=== PATIENT | male | born 1990 | race Caucasian/White ===

== ENCOUNTER 2019-08-21 08:05 | Inpatient (IN) | payer OTHER ==
[2019-08-21 08:50] VITALS: BMI 27.1
--- NOTE | 2019-08-21 09:23 | HP ---
CIWA Score - Admission Criteria OASAS Guidelines: Admission for Medically Managed Detox: Requires at least one of the followin. CIWA greater than 12 2. Seizures within the past 24 hours 3. Delirium tremens within the past 24 hours 4. Hallucinations within the past 24 hours 5. Acute intervention needed for co occurring medical disorder 6. Acute intervention needed for co occurring psychiatric disorder 7. Severe withdrawal that cannot be handled at a lower level of care (continued vomiting, continued diarrhea, abnormal vital signs) requiring intravenous medication and/or fluids 8. Admission ROS [facility] Allergies/Adverse Reactions: Allergies Allergy/AdvReac Type Severity Reaction Status Date / Time No Known Allergies Allergy Verified 08/21/19 08:41 History of Present Illness: pt here requesting rehab from cannabis , crystal metamphetamine use , reports binge-use 5-6 days in a row latest 2 days ago , started use 6 mo ago . MMTP since 3 mo ago , current dose 80 mg . cannabis - 1 gr 3-4 x/week pmhx hep C dx 2 yrs ago no tx pshx : denies psych : denies This report was requested by: Guerita Fuentes | Reference #: [id number] Others' Prescriptions Patient Name: Maurizio Daly Date: 1990 Address: [address] [place] [address] Sex: Male Rx Written Rx Dispensed Drug Quantity Days Supply Prescriber Name 02/17/2019 02/17/2019 suboxone 2 mg-0.5 mg sl film 60 30 Rossi Malik Patient Name: Maurizio Daly Date: 1990 Address: [address] [place] [address] Sex: Male Rx Written Rx Dispensed Drug Quantity Days Supply Prescriber Name 12/30/2018 12/30/2018 buprenorphine-naloxone 8-2 mg sl film 6 2 Cal Sloan MD 12/30/2018 12/30/2018 chlordiazepoxide 10 mg capsule 18 2 Cal Sloan MD 08/25/2018 08/25/2018 suboxone 8 mg-2 mg sl film 9 3 Cal Sloan MD Patient Name: Maurizio Daly Date: 1990 Address: [address] [place] [id number] Sex: Male Rx Written Rx Dispensed Drug Quantity Days Supply Prescriber Name 09/05/2018 09/09/2018 suboxone 8 mg-2 mg sl film 12 8 Elliot Ricketts () Exam Limitations: No Limitations - Ebola screening Have you traveled outside of the country in the last 21 days: No Have you had contact with anyone from an Ebola affected area: No Do you have a fever: No - Review of Systems Constitutional: No Symptoms Reported EENT: reports: No Symptoms Reported, Dental Problems Respiratory: reports: No Symptoms reported Cardiac: reports: No Symptoms Reported GI: reports: No Symptoms Reported : reports: No Symptoms Reported Musculoskeletal: reports: No Symptoms Reported Integumentary: reports: Erythema (jaylan hands), Rash Neuro: reports: No Symptoms reported Endocrine: reports: No Symptoms Reported Hematology: reports: No Symptoms Reported Psychiatric: reports: Orientated x3, Agitated Patient History - Smoking Cessation Smoking history: Smoker current status UNK - Substances abused Heroin Substance route: Injection Frequency: Daily Amount used: 5 bags Age of first use: 18 Date of last use: 08/19/19 Alprazolam (Xanax) Substance route: Oral Frequency: 3-6 times per week Amount used: 2mg Age of first use: 16 Date of last use: 08/16/19 Crack Substance route: Smoking Frequency: 3-6 times per week Amount used: $20 worth Age of first use: 21 Date of last use: 08/19/19 Crystal meth Substance route: Injection Frequency: Daily Amount used: 1gm Age of first use: 28 Date of last use: 08/20/19 Admission Physical Exam [facility] - Vital Signs Vital Signs: Vital Signs - 24 hr 08/21/19 08/21/19 08:38 09:12 Temperature 97.8 F 97.8 F Pulse Rate 74 74 Respiratory 20 20 Rate Blood Pressure 131/88 131/88 - Physical General Appearance: Yes: Disheveled, Mild Distress, Anxious HEENTM: Yes: EOMI, Hearing grossly Normal, Normocephalic, Normal Voice Respiratory: Yes: Chest Non-Tender, Lungs Clear, Normal Breath Sounds, No Respiratory Distress, No Accessory Muscle Use Neck: Yes: No masses,lesions,Nodules, Trachea in good position Cardiology: Yes: Regular Rhythm, Regular Rate, S1, S2 Abdominal: Yes: Non Tender, Flat, Soft Back: Yes: Normal Inspection Musculoskeletal: Yes: Gait Steady Extremities: Yes: Non-Tender, Erythema (jaylan hands) Neurological: Yes: Alert, Motor Strength 5/5 Integumentary: Yes: Warm, Track Erazo, Other (superficial excoriations generalized jaylan UE / hands / face, area of alopecia on parietal states had excoriation and he kept " picking at it " no hair growth since .) - Diagnostic (1) Methamphetamine use disorder, severe Current Visit: Yes Status: Chronic (2) Opioid dependence on agonist therapy Current Visit: Yes Status: Chronic (3) Cannabis abuse, episodic use Current Visit: Yes Status: Chronic (4) Nicotine dependence Current Visit: Yes Status: Chronic Qualifiers: Nicotine product type: cigarettes (5) Cocaine use disorder, moderate, dependence Current Visit: Yes Status: Chronic Breathalyzer - Breathalyzer Breathalyzer: 0 Urine Drug Screen - Test Device Lot number: [id number] Expiration date: 04/08/21 - Control Is test valid?: Yes - Results Drug screen NEGATIVE: No Urine drug screen results: THC-Marijuana, MET-Methamphetamine, AMP-Amphetamines , MTD-Methadone Inpatient Rehab Admission - Rehab Decision to Admit Inpatient rehab admission?: Yes - Initial Determination Are CD services needed?: Yes Free of communicable disease: Yes Not in need of hospitalization: Yes - Rehab Admission Criteria Previous failed treatment: Yes Poor recovery environment: Yes Comorbidities: No Lacks judgement: Yes Patient is meeting Inpatient Rehab admission criteria:: Yes
[2019-08-21] MEDS ORDERED: LOPERAMIDE HCL 2 MG CAPSULE PO PRN (09:45)
[2019-08-21] MEDS ORDERED: guaiFENesin 200 MG/10 ML 10 ML UNIT-DOSE CUPS PO PRN (09:45)
[2019-08-21] MEDS ORDERED: P-EPHED 60MG/TRIPROLIDI 2.5MG TABLET PO PRN (09:45)
[2019-08-21] MEDS ORDERED: MAG HYDROX/AL HYDROX/SIMETH 30 ML UNIT-DOSE CUP PO PRN (09:45)
[2019-08-21] MEDS ORDERED: MAGNESIUM HYDROX 2400MG/30ML ORAL SUSPENSION 30 ML CUP PO PRN (09:45)
[2019-08-21] MEDS ORDERED: MAGNESIUM CITRATE 300 ML BOTTLE PO PRN (09:45)
[2019-08-21] MEDS ORDERED: MENTHOL/PHENOL 1 EACH UD MM PRN (09:45)
[2019-08-21] MEDS: PRENATAL VITAMINS W/ FOLIC ACID TABLET (FP) PO SCH (11:26)
[2019-08-21] MEDS: IBUPROFEN 400 MG TABLET (FP) PO PRN ×2 (11:44→16:57)
--- NOTE | 2019-08-21 11:44 | PN ---
S Progress Note Note: Patient arrived to unit from [facility] for rehab services for dependence on Crystal Meth. He is currently on MTD 80mg daily at [facility] with Last dose 08/20/19. Verified at [facility] by JASON Duran. Patient noted falling asleep in chair, alert and oriented x 3, in NAD. States he has been up for 5 days. Will hold administering MTD at this time until he is more awake. Vital Signs Temperature 97.8 F 08/21/19 09:12 Pulse Rate 74 08/21/19 09:12 Respiratory Rate 20 08/21/19 09:12 Blood Pressure 131/88 08/21/19 09:12 O2 Sat by Pulse Oximetry (%)
[2019-08-21 12:36] LABS: HEMATOCRIT 36.5 % (35.4-49); HEMOGLOBIN 12.8 GM/dL (11.7-16.9); MCH 30.7 pg (25.7-33.7); MCHC 35.1 g/dl (32.0-35.9); MEAN CELL VOLUME 87.3 fl (80-96); PLATELET COUNT 317 K/MM3 (134-434); RBC 4.18 M/mm3 (4.00-5.60); RDW 12.3 % (11.9-15.9); WHITE BLOOD COUNT 9.5 K/mm3 (4.0-10.0)
[2019-08-21 12:44] LABS: ALBUMIN 3.7 g/dl (3.4-5.0); BILIRUBIN,TOTAL 0.4 mg/dL (0.2-1); BLOOD UREA NITROGEN 14.6 mg/dL (7-18); CALCIUM 9.6 mg/dL (8.5-10.1); CREATININE 0.8 mg/dL (0.55-1.3); POTASSIUM 4.3 mmol/L (3.5-5.1); TOT PROT 7.8 g/dl (6.4-8.2)
[2019-08-21] MEDS: METHADONE HCL 40 MG DISPERSABLE TABLET PO SCH (15:04)
[2019-08-21] MEDS: BACITRACIN/POLYMYXIN B SULFATE 15 GM TUBE TP SCH ×2 (15:05→21:21)
[2019-08-21] MEDS: MELATONIN 5 MG TABLETS PO PRN (21:20)
[2019-08-21] MEDS: THIAMINE HCL 100 MG TABLET (FP) PO SCH (21:20)
[2019-08-21] MEDS ORDERED: BACITRACIN 15 GM TUBE TOPICAL OINTMENT TP SCH (22:00)
[2019-08-22] MEDS: METHADONE HCL 40 MG DISPERSABLE TABLET PO SCH (09:42)
[2019-08-22] MEDS: PRENATAL VITAMINS W/ FOLIC ACID TABLET (FP) PO SCH (09:43)
[2019-08-22] MEDS: BACITRACIN/POLYMYXIN B SULFATE 15 GM TUBE TP SCH ×2 (09:43→23:20)
[2019-08-22] MEDS: THIAMINE HCL 100 MG TABLET (FP) PO SCH (23:20)
[2019-08-23] MEDS: METHADONE HCL 40 MG DISPERSABLE TABLET PO SCH (09:57)
[2019-08-23] MEDS: PRENATAL VITAMINS W/ FOLIC ACID TABLET (FP) PO SCH (09:58)
[2019-08-23] MEDS: BACITRACIN/POLYMYXIN B SULFATE 15 GM TUBE TP SCH ×2 (09:59→22:42)
[2019-08-23 11:05] LABS: PH,URINE 5.5 (5.0-8.0); URINE APPEARANCE CLEAR; URINE BILIRUBIN NEGATIVE (NEGATIVE); URINE COLOR YELLOW; URINE GLUCOSE (UA) NEGATIVE (NEGATIVE); URINE KETONE NEGATIVE (NEGATIVE); URINE LEUK ESTERASE NEGATIVE (NEGATIVE); URINE NITRITE NEGATIVE (NEGATIVE); URINE PROTEIN NEGATIVE (NEGATIVE); URINE UROBILINOGEN 0.2 mg/dL (0.2-1.0)
[2019-08-23] MEDS: THIAMINE HCL 100 MG TABLET (FP) PO SCH (22:42)
[2019-08-23] MEDS: IBUPROFEN 400 MG TABLET (FP) PO PRN (22:43)
[2019-08-23] MEDS: MELATONIN 5 MG TABLETS PO PRN (22:44)
[2019-08-24] MEDS: BACITRACIN/POLYMYXIN B SULFATE 15 GM TUBE TP SCH ×2 (10:18→21:13)
[2019-08-24] MEDS: PRENATAL VITAMINS W/ FOLIC ACID TABLET (FP) PO SCH (10:18)
[2019-08-24] MEDS: METHADONE HCL 40 MG DISPERSABLE TABLET PO SCH (10:18)
[2019-08-24] MEDS: IBUPROFEN 400 MG TABLET (FP) PO PRN (17:52)
[2019-08-24] MEDS: THIAMINE HCL 100 MG TABLET (FP) PO SCH (21:12)
[2019-08-24] MEDS: MELATONIN 5 MG TABLETS PO PRN (21:12)
[2019-08-25] MEDS: METHADONE HCL 40 MG DISPERSABLE TABLET PO SCH (10:04)
[2019-08-25] MEDS: PRENATAL VITAMINS W/ FOLIC ACID TABLET (FP) PO SCH (10:04)
[2019-08-25] MEDS: BACITRACIN/POLYMYXIN B SULFATE 15 GM TUBE TP SCH ×2 (10:06→21:22)
[2019-08-25] MEDS: THIAMINE HCL 100 MG TABLET (FP) PO SCH (21:21)
[2019-08-25] MEDS: MELATONIN 5 MG TABLETS PO PRN (21:21)
[2019-08-26] MEDS: PRENATAL VITAMINS W/ FOLIC ACID TABLET (FP) PO SCH (10:18)
[2019-08-26] MEDS: METHADONE HCL 40 MG DISPERSABLE TABLET PO SCH (10:19)
[2019-08-26] MEDS: BACITRACIN/POLYMYXIN B SULFATE 15 GM TUBE TP SCH ×2 (10:20→21:23)
[2019-08-26] MEDS: THIAMINE HCL 100 MG TABLET (FP) PO SCH (21:24)
[2019-08-26] MEDS: MELATONIN 5 MG TABLETS PO PRN (21:24)
[2019-08-27] MEDS: PRENATAL VITAMINS W/ FOLIC ACID TABLET (FP) PO SCH (10:28)
[2019-08-27] MEDS: METHADONE HCL 40 MG DISPERSABLE TABLET PO SCH (10:28)
[2019-08-27] MEDS: BACITRACIN/POLYMYXIN B SULFATE 15 GM TUBE TP SCH ×2 (10:30→22:02)
[2019-08-27] MEDS: IBUPROFEN 400 MG TABLET (FP) PO PRN (11:50)
[2019-08-27] MEDS: THIAMINE HCL 100 MG TABLET (FP) PO SCH (22:02)
[2019-08-28] MEDS: METHADONE HCL 40 MG DISPERSABLE TABLET PO SCH (06:48)
[2019-08-28] MEDS: PRENATAL VITAMINS W/ FOLIC ACID TABLET (FP) PO SCH (09:59)
[2019-08-28] MEDS: IBUPROFEN 400 MG TABLET (FP) PO PRN ×2 (09:59→18:01)
[2019-08-28] MEDS: BACITRACIN/POLYMYXIN B SULFATE 15 GM TUBE TP SCH ×2 (11:38→22:04)
[2019-08-28] MEDS: NICOTINE POLACRILEX 2 MG GUM BUC PRN ×2 (14:21→18:03)
[2019-08-28] MEDS: ACETAMINOPHEN 325 MG TABLET (FP) PO PRN (20:53)
[2019-08-28] MEDS: THIAMINE HCL 100 MG TABLET (FP) PO SCH (22:04)
[2019-08-29] MEDS: IBUPROFEN 400 MG TABLET (FP) PO PRN ×3 (06:42→22:04)
[2019-08-29] MEDS: METHADONE HCL 40 MG DISPERSABLE TABLET PO SCH (06:43)
[2019-08-29] MEDS: PRENATAL VITAMINS W/ FOLIC ACID TABLET (FP) PO SCH (11:07)
[2019-08-29] MEDS: BACITRACIN/POLYMYXIN B SULFATE 15 GM TUBE TP SCH ×2 (11:07→21:19)
[2019-08-29] MEDS: NICOTINE POLACRILEX 2 MG GUM BUC PRN (19:51)
[2019-08-29] MEDS: THIAMINE HCL 100 MG TABLET (FP) PO SCH (21:16)
[2019-08-29] MEDS: ACETAMINOPHEN 325 MG TABLET (FP) PO PRN (21:17)
[2019-08-30] MEDS: METHADONE HCL 40 MG DISPERSABLE TABLET PO SCH (07:06)
[2019-08-30] MEDS: BACITRACIN/POLYMYXIN B SULFATE 15 GM TUBE TP SCH ×2 (09:45→21:20)
[2019-08-30] MEDS: NICOTINE POLACRILEX 2 MG GUM BUC PRN ×2 (09:45→21:20)
[2019-08-30] MEDS: IBUPROFEN 400 MG TABLET (FP) PO PRN ×2 (09:45→22:17)
[2019-08-30] MEDS: PRENATAL VITAMINS W/ FOLIC ACID TABLET (FP) PO SCH (09:45)
[2019-08-30] MEDS: THIAMINE HCL 100 MG TABLET (FP) PO SCH (21:20)
[2019-08-31] MEDS: METHADONE HCL 40 MG DISPERSABLE TABLET PO SCH (06:28)
[2019-08-31] MEDS ORDERED: BENZOCAINE 20 % GEL TUBE MM PRN (09:42)
--- NOTE | 2019-08-31 09:52 | PN ---
[facility] Progress Note Note: Patient presents with c/o toothache and constipation. State his last BM was 2 days ago and MOM is ineffective to provide relief. Patient denies fever, earache , abdominal pain and nausea. On MMTP. Vital Signs Temperature 97.8 F 08/31/19 07:08 Pulse Rate 81 08/31/19 07:08 Respiratory Rate 18 08/31/19 07:08 Blood Pressure 105/58 L 08/31/19 07:08 O2 Sat by Pulse Oximetry (%) Laboratory Tests 08/21/19 08/21/19 08/21/19 09:30 09:30 09:30 WBC 9.5 RBC 4.18 Hgb 12.8 Hct 36.5 MCV 87.3 MCH 30.7 MCHC 35.1 RDW 12.3 Plt Count 317 MPV 8.0 Sodium 137 Potassium 4.3 Chloride 102 Carbon Dioxide 30 Anion Gap 5 L BUN 14.6 Creatinine 0.8 Est GFR (CKD-EPI)AfAm 140.90 Est GFR (CKD-EPI)NonAf 121.57 Random Glucose 94 Calcium 9.6 Total Bilirubin 0.4 AST 49 H ALT 85 H Alkaline Phosphatase 103 Total Protein 7.8 Albumin 3.7 Urine Color Urine Appearance Urine pH Ur Specific [place] Urine Protein Urine Glucose (UA) Urine Ketones Urine Blood Urine Nitrite Urine Bilirubin Urine Urobilinogen Ur Leukocyte Esterase RPR Titer Nonreactive 08/23/19 08:20 WBC RBC Hgb Hct MCV MCH MCHC RDW Plt Count MPV Sodium Potassium Chloride Carbon Dioxide Anion Gap BUN Creatinine Est GFR (CKD-EPI)AfAm Est GFR (CKD-EPI)NonAf Random Glucose Calcium Total Bilirubin AST ALT Alkaline Phosphatase Total Protein Albumin Urine Color Yellow Urine Appearance Clear Urine pH 5.5 Ur Specific [place] 1.018 Urine Protein Negative Urine Glucose (UA) Negative Urine Ketones Negative Urine Blood Negative Urine Nitrite Negative Urine Bilirubin Negative Urine Urobilinogen 0.2 Ur Leukocyte Esterase Negative RPR Titer PE: alert and oriented x 3 skin warm and dry oral mucosa pink, +tooth decay, no exudate or redness of gums noted gi nt, nd ext full rom, amb ad tiffani no tremors A/P; constipation likely due to MTD toothache continue prn with citroma, to receive dose now encourage ambulation and oral fluids add oragel prn increase motrin to 600mg every 6 hr prn for pain monitor clinically
[2019-08-31] MEDS: BACITRACIN/POLYMYXIN B SULFATE 15 GM TUBE TP SCH ×2 (10:18→21:30)
[2019-08-31] MEDS: PRENATAL VITAMINS W/ FOLIC ACID TABLET (FP) PO SCH (10:19)
[2019-08-31] MEDS: DOCUSATE SODIUM 100 MG CAPSULE (FP) PO SCH ×2 (13:41→21:30)
[2019-08-31] MEDS: IBUPROFEN 600 MG TABLET (FP) PO PRN (19:34)
[2019-08-31] MEDS: THIAMINE HCL 100 MG TABLET (FP) PO SCH (21:30)
[2019-09-01] MEDS: DOCUSATE SODIUM 100 MG CAPSULE (FP) PO SCH ×3 (06:44→21:13)
[2019-09-01] MEDS: IBUPROFEN 600 MG TABLET (FP) PO PRN ×2 (07:14→18:44)
[2019-09-01] MEDS: PRENATAL VITAMINS W/ FOLIC ACID TABLET (FP) PO SCH (10:06)
[2019-09-01] MEDS: METHADONE HCL 40 MG DISPERSABLE TABLET PO SCH (10:06)
[2019-09-01] MEDS: BACITRACIN/POLYMYXIN B SULFATE 15 GM TUBE TP SCH ×2 (10:07→21:13)
[2019-09-01] MEDS: THIAMINE HCL 100 MG TABLET (FP) PO SCH (21:13)
[2019-09-01] MEDS: ACETAMINOPHEN 325 MG TABLET (FP) PO PRN (23:39)
[2019-09-02] MEDS: IBUPROFEN 600 MG TABLET (FP) PO PRN ×2 (06:11→16:20)
[2019-09-02] MEDS: DOCUSATE SODIUM 100 MG CAPSULE (FP) PO SCH ×3 (06:11→21:10)
[2019-09-02] MEDS: METHADONE HCL 40 MG DISPERSABLE TABLET PO SCH (09:51)
[2019-09-02] MEDS: PRENATAL VITAMINS W/ FOLIC ACID TABLET (FP) PO SCH (09:52)
[2019-09-02] MEDS: BACITRACIN/POLYMYXIN B SULFATE 15 GM TUBE TP SCH ×2 (09:52→21:11)
[2019-09-02] MEDS: NICOTINE POLACRILEX 2 MG GUM BUC PRN (19:23)
[2019-09-02] MEDS: THIAMINE HCL 100 MG TABLET (FP) PO SCH (21:10)
[2019-09-03] MEDS: DOCUSATE SODIUM 100 MG CAPSULE (FP) PO SCH ×3 (07:17→21:08)
[2019-09-03] MEDS: IBUPROFEN 600 MG TABLET (FP) PO PRN ×2 (08:48→21:09)
[2019-09-03] MEDS: PRENATAL VITAMINS W/ FOLIC ACID TABLET (FP) PO SCH (10:05)
[2019-09-03] MEDS: BACITRACIN/POLYMYXIN B SULFATE 15 GM TUBE TP SCH ×2 (10:06→21:10)
[2019-09-03] MEDS ORDERED: METHADONE HCL 40 MG DISPERSABLE TABLET PO ONE (10:45)
[2019-09-03] MEDS: THIAMINE HCL 100 MG TABLET (FP) PO SCH (21:08)
[2019-09-04] MEDS: DOCUSATE SODIUM 100 MG CAPSULE (FP) PO SCH ×3 (07:27→21:23)
[2019-09-04] MEDS: IBUPROFEN 600 MG TABLET (FP) PO PRN ×2 (07:27→21:21)
[2019-09-04] MEDS: METHADONE HCL 40 MG DISPERSABLE TABLET PO SCH (10:11)
[2019-09-04] MEDS: PRENATAL VITAMINS W/ FOLIC ACID TABLET (FP) PO SCH (10:11)
[2019-09-04] MEDS: BACITRACIN/POLYMYXIN B SULFATE 15 GM TUBE TP SCH ×2 (10:12→21:23)
[2019-09-04] MEDS: NICOTINE POLACRILEX 2 MG GUM BUC PRN (21:22)
[2019-09-04] MEDS: THIAMINE HCL 100 MG TABLET (FP) PO SCH (21:23)
[2019-09-05] MEDS: DOCUSATE SODIUM 100 MG CAPSULE (FP) PO SCH ×3 (07:20→21:37)
[2019-09-05] MEDS: PRENATAL VITAMINS W/ FOLIC ACID TABLET (FP) PO SCH (10:14)
[2019-09-05] MEDS: BACITRACIN/POLYMYXIN B SULFATE 15 GM TUBE TP SCH ×2 (10:15→21:37)
[2019-09-05] MEDS: METHADONE HCL 40 MG DISPERSABLE TABLET PO SCH (10:15)
[2019-09-05] MEDS: NICOTINE POLACRILEX 2 MG GUM BUC PRN (14:05)
[2019-09-05] MEDS: THIAMINE HCL 100 MG TABLET (FP) PO SCH (21:37)
[2019-09-06] MEDS: DOCUSATE SODIUM 100 MG CAPSULE (FP) PO SCH ×3 (07:13→21:59)
[2019-09-06] MEDS: PRENATAL VITAMINS W/ FOLIC ACID TABLET (FP) PO SCH (09:50)
[2019-09-06] MEDS: METHADONE HCL 40 MG DISPERSABLE TABLET PO SCH (09:51)
[2019-09-06] MEDS: BACITRACIN/POLYMYXIN B SULFATE 15 GM TUBE TP SCH ×2 (09:52→21:59)
[2019-09-06] MEDS: THIAMINE HCL 100 MG TABLET (FP) PO SCH (21:59)
[2019-09-07] MEDS: DOCUSATE SODIUM 100 MG CAPSULE (FP) PO SCH ×2 (07:18→14:14)
[2019-09-07] MEDS: METHADONE HCL 40 MG DISPERSABLE TABLET PO SCH (10:04)
[2019-09-07] MEDS: PRENATAL VITAMINS W/ FOLIC ACID TABLET (FP) PO SCH (10:04)
[2019-09-07] MEDS: BACITRACIN/POLYMYXIN B SULFATE 15 GM TUBE TP SCH ×2 (10:05→21:55)
[2019-09-07] MEDS: THIAMINE HCL 100 MG TABLET (FP) PO SCH (21:55)
[2019-09-07] MEDS ORDERED: DOCUSATE SODIUM 100 MG CAPSULE (FP) PO ONE (22:00)
[2019-09-07] MEDS: hydrOXYzine PAMOATE 25 MG CAPSULE (FP) PO PRN (22:47)
[2019-09-08] MEDS: BACITRACIN/POLYMYXIN B SULFATE 15 GM TUBE TP SCH ×2 (10:15→22:34)
[2019-09-08] MEDS: PRENATAL VITAMINS W/ FOLIC ACID TABLET (FP) PO SCH (10:15)
[2019-09-08] MEDS: DOCUSATE SODIUM 100 MG CAPSULE (FP) PO SCH (10:15)
[2019-09-08] MEDS: METHADONE HCL 40 MG DISPERSABLE TABLET PO SCH (10:15)
[2019-09-08] MEDS: hydrOXYzine PAMOATE 25 MG CAPSULE (FP) PO PRN (11:56)
[2019-09-08] MEDS: NICOTINE POLACRILEX 2 MG GUM BUC PRN (14:10)
[2019-09-08] MEDS ORDERED: COLLOIDAL OATMEAL 1 BAR EACH TP PRN (15:17)
--- NOTE | 2019-09-08 15:25 | PN ---
[facility] Progress Note Note: Pt c/o itchy red rash on legs and abdomen. Pt also c/o dry scaly scalp and hx dandruff. Vital Signs - 24 hr 09/08/19 09/08/19 09/08/19 00:30 03:30 06:53 Temperature 97.7 F Pulse Rate 78 Respiratory 18 18 18 Rate Blood Pressure 117/69 Alert o x 3 nad oob ambulates with steady gait head:dry scalp skin:red maculopapular rash mixed with areas of red blotches;Dorsal hands with old healing IVD inj lesions. A/P r/o allergic rxn nonspecific skin eruptions dandruff Benadryl 25 mg po tid prn for itch/rash Aveeno soap daily shower eucerin cream daily after shower selsun shampoo as directed
[2019-09-08] MEDS: SELENIUM SULFIDE 2.5% LOTION 4 OZ. TP SCH (16:29)
[2019-09-08] MEDS: MINERAL OIL/PETROLAT/WATER TOPICAL CREAM 113 GM JAR TP SCH (16:32)
[2019-09-08] MEDS: THIAMINE HCL 100 MG TABLET (FP) PO SCH (22:34)
[2019-09-09] MEDS: METHADONE HCL 40 MG DISPERSABLE TABLET PO SCH (09:53)
[2019-09-09] MEDS: PRENATAL VITAMINS W/ FOLIC ACID TABLET (FP) PO SCH (09:53)
[2019-09-09] MEDS: DOCUSATE SODIUM 100 MG CAPSULE (FP) PO SCH (09:53)
[2019-09-09] MEDS: MINERAL OIL/PETROLAT/WATER TOPICAL CREAM 113 GM JAR TP SCH (09:55)
[2019-09-09] MEDS: hydrOXYzine PAMOATE 25 MG CAPSULE (FP) PO PRN (09:55)
[2019-09-09] MEDS: BACITRACIN/POLYMYXIN B SULFATE 15 GM TUBE TP SCH ×2 (10:34→22:01)
[2019-09-09] MEDS: SELENIUM SULFIDE 2.5% LOTION 4 OZ. TP SCH (10:35)
[2019-09-09] MEDS: THIAMINE HCL 100 MG TABLET (FP) PO SCH (22:01)
[2019-09-10] MEDS ORDERED: METHADONE HCL 40 MG DISPERSABLE TABLET PO ONE (10:38)
[2019-09-10] MEDS: diphenhydrAMINE HCL 25 MG CAPSULE (FP) PO PRN (10:59)
[2019-09-10] MEDS: PRENATAL VITAMINS W/ FOLIC ACID TABLET (FP) PO SCH (10:59)
[2019-09-10] MEDS: DOCUSATE SODIUM 100 MG CAPSULE (FP) PO SCH (10:59)
[2019-09-10] MEDS: BACITRACIN/POLYMYXIN B SULFATE 15 GM TUBE TP SCH ×2 (11:01→21:46)
[2019-09-10] MEDS: SELENIUM SULFIDE 2.5% LOTION 4 OZ. TP SCH (11:01)
[2019-09-10] MEDS: MINERAL OIL/PETROLAT/WATER TOPICAL CREAM 113 GM JAR TP SCH (11:01)
[2019-09-10] MEDS: THIAMINE HCL 100 MG TABLET (FP) PO SCH (21:46)
[2019-09-11] MEDS: DOCUSATE SODIUM 100 MG CAPSULE (FP) PO SCH (09:41)
[2019-09-11] MEDS: diphenhydrAMINE HCL 25 MG CAPSULE (FP) PO PRN ×2 (09:41→16:17)
[2019-09-11] MEDS: METHADONE HCL 40 MG DISPERSABLE TABLET PO SCH (09:41)
[2019-09-11] MEDS: PRENATAL VITAMINS W/ FOLIC ACID TABLET (FP) PO SCH (09:41)
[2019-09-11] MEDS: BACITRACIN/POLYMYXIN B SULFATE 15 GM TUBE TP SCH ×2 (09:42→21:53)
[2019-09-11] MEDS: SELENIUM SULFIDE 2.5% LOTION 4 OZ. TP SCH (09:42)
[2019-09-11] MEDS: MINERAL OIL/PETROLAT/WATER TOPICAL CREAM 113 GM JAR TP SCH (09:42)
[2019-09-11] MEDS: NICOTINE POLACRILEX 2 MG GUM BUC PRN (16:18)
[2019-09-11] MEDS: HYDROCORTISONE 1% TOPICAL CREAM 30 GM TUBE TP SCH (21:53)
[2019-09-11] MEDS: THIAMINE HCL 100 MG TABLET (FP) PO SCH (21:54)
[2019-09-12] MEDS: HYDROCORTISONE 1% TOPICAL CREAM 30 GM TUBE TP SCH ×3 (06:50→22:01)
[2019-09-12] MEDS: DOCUSATE SODIUM 100 MG CAPSULE (FP) PO SCH (10:30)
[2019-09-12] MEDS: PRENATAL VITAMINS W/ FOLIC ACID TABLET (FP) PO SCH (10:30)
[2019-09-12] MEDS: METHADONE HCL 40 MG DISPERSABLE TABLET PO SCH (10:30)
[2019-09-12] MEDS: MINERAL OIL/PETROLAT/WATER TOPICAL CREAM 113 GM JAR TP SCH (10:32)
[2019-09-12] MEDS: BACITRACIN/POLYMYXIN B SULFATE 15 GM TUBE TP SCH ×2 (10:32→22:01)
[2019-09-12] MEDS: SELENIUM SULFIDE 2.5% LOTION 4 OZ. TP SCH (11:23)
[2019-09-12] MEDS: NICOTINE POLACRILEX 2 MG GUM BUC PRN (15:23)
[2019-09-12] MEDS: THIAMINE HCL 100 MG TABLET (FP) PO SCH (22:01)
[2019-09-13] MEDS: HYDROCORTISONE 1% TOPICAL CREAM 30 GM TUBE TP SCH ×3 (07:00→22:07)
[2019-09-13] MEDS: PRENATAL VITAMINS W/ FOLIC ACID TABLET (FP) PO SCH (09:57)
[2019-09-13] MEDS: SELENIUM SULFIDE 2.5% LOTION 4 OZ. TP SCH (09:59)
[2019-09-13] MEDS: BACITRACIN/POLYMYXIN B SULFATE 15 GM TUBE TP SCH ×2 (09:59→22:07)
[2019-09-13] MEDS: METHADONE HCL 40 MG DISPERSABLE TABLET PO SCH (09:59)
[2019-09-13] MEDS: MINERAL OIL/PETROLAT/WATER TOPICAL CREAM 113 GM JAR TP SCH (09:59)
[2019-09-13] MEDS: DOCUSATE SODIUM 100 MG CAPSULE (FP) PO SCH (09:59)
[2019-09-13] MEDS: NICOTINE POLACRILEX 2 MG GUM BUC PRN (16:48)
[2019-09-13] MEDS: THIAMINE HCL 100 MG TABLET (FP) PO SCH (22:07)
[2019-09-14] MEDS: HYDROCORTISONE 1% TOPICAL CREAM 30 GM TUBE TP SCH ×3 (07:47→22:42)
[2019-09-14] MEDS: DOCUSATE SODIUM 100 MG CAPSULE (FP) PO SCH (10:12)
[2019-09-14] MEDS: METHADONE HCL 40 MG DISPERSABLE TABLET PO SCH (10:12)
[2019-09-14] MEDS: PRENATAL VITAMINS W/ FOLIC ACID TABLET (FP) PO SCH (10:12)
[2019-09-14] MEDS: MINERAL OIL/PETROLAT/WATER TOPICAL CREAM 113 GM JAR TP SCH (10:13)
[2019-09-14] MEDS: BACITRACIN/POLYMYXIN B SULFATE 15 GM TUBE TP SCH ×2 (10:13→22:42)
[2019-09-14] MEDS: SELENIUM SULFIDE 2.5% LOTION 4 OZ. TP SCH (10:13)
[2019-09-14] MEDS: THIAMINE HCL 100 MG TABLET (FP) PO SCH (22:42)
[2019-09-15] MEDS: HYDROCORTISONE 1% TOPICAL CREAM 30 GM TUBE TP SCH ×3 (06:55→22:18)
[2019-09-15] MEDS: DOCUSATE SODIUM 100 MG CAPSULE (FP) PO SCH (10:23)
[2019-09-15] MEDS: METHADONE HCL 40 MG DISPERSABLE TABLET PO SCH (10:23)
[2019-09-15] MEDS: PRENATAL VITAMINS W/ FOLIC ACID TABLET (FP) PO SCH (10:23)
[2019-09-15] MEDS: MINERAL OIL/PETROLAT/WATER TOPICAL CREAM 113 GM JAR TP SCH (10:24)
[2019-09-15] MEDS: SELENIUM SULFIDE 2.5% LOTION 4 OZ. TP SCH (10:24)
[2019-09-15] MEDS: BACITRACIN/POLYMYXIN B SULFATE 15 GM TUBE TP SCH ×2 (10:24→22:18)
[2019-09-15] MEDS: NICOTINE POLACRILEX 2 MG GUM BUC PRN ×2 (13:24→19:35)
[2019-09-15] MEDS: THIAMINE HCL 100 MG TABLET (FP) PO SCH (22:18)
[2019-09-16] MEDS: HYDROCORTISONE 1% TOPICAL CREAM 30 GM TUBE TP SCH ×3 (06:28→21:20)
[2019-09-16] MEDS: DOCUSATE SODIUM 100 MG CAPSULE (FP) PO SCH (10:24)
[2019-09-16] MEDS: PRENATAL VITAMINS W/ FOLIC ACID TABLET (FP) PO SCH (10:25)
[2019-09-16] MEDS: METHADONE HCL 40 MG DISPERSABLE TABLET PO SCH (10:25)
[2019-09-16] MEDS: BACITRACIN/POLYMYXIN B SULFATE 15 GM TUBE TP SCH ×2 (10:26→21:20)
[2019-09-16] MEDS: MINERAL OIL/PETROLAT/WATER TOPICAL CREAM 113 GM JAR TP SCH (10:26)
[2019-09-16] MEDS: NICOTINE POLACRILEX 2 MG GUM BUC PRN (10:26)
[2019-09-16] MEDS: THIAMINE HCL 100 MG TABLET (FP) PO SCH (21:20)
[2019-09-17 06:54] VITALS: BP 138/77; PULSE 71; TEMP 97.5
[2019-09-17] MEDS: HYDROCORTISONE 1% TOPICAL CREAM 30 GM TUBE TP SCH ×3 (06:59→22:50)
[2019-09-17] MEDS: PRENATAL VITAMINS W/ FOLIC ACID TABLET (FP) PO SCH (10:20)
[2019-09-17] MEDS: DOCUSATE SODIUM 100 MG CAPSULE (FP) PO SCH (10:20)
[2019-09-17] MEDS: METHADONE HCL 40 MG DISPERSABLE TABLET PO SCH (10:21)
[2019-09-17] MEDS: BACITRACIN/POLYMYXIN B SULFATE 15 GM TUBE TP SCH ×2 (10:21→22:50)
[2019-09-17] MEDS: MINERAL OIL/PETROLAT/WATER TOPICAL CREAM 113 GM JAR TP SCH (10:21)
[2019-09-17] MEDS: NICOTINE POLACRILEX 2 MG GUM BUC PRN (14:55)
[2019-09-17] MEDS: THIAMINE HCL 100 MG TABLET (FP) PO SCH (22:50)
[2019-09-18] MEDS: HYDROCORTISONE 1% TOPICAL CREAM 30 GM TUBE TP SCH (06:25)
--- NOTE | 2019-09-18 08:43 | DS ---
[facility] Re[facility] Discharge Summary - [facility] Discharge Summary Admission Date: 08/21/19 Discharge Date: 09/18/19 - History Present History: Cannabis dependence, Cocaine dependence, MMTP Additional Comments: Pt is 29 y/o male with a hx of SONJA-admitted to rehab and scheduled for discharge today. Pertinent Past History: denies - Discharge Physical Exam Vital Signs: Vital Signs Temperature 97.5 F L 09/17/19 06:53 Pulse Rate 71 09/17/19 06:53 Respiratory Rate 18 09/18/19 06:50 Blood Pressure 138/77 09/17/19 06:53 O2 Sat by Pulse Oximetry (%) Alert o x 3,denies s/h/i nad oob ambulating with steady gait Pertinent Admission Physical Exam Findings: Laboratory Tests 08/21/19 08/21/19 08/21/19 09:30 09:30 09:30 WBC 9.5 RBC 4.18 Hgb 12.8 Hct 36.5 MCV 87.3 MCH 30.7 MCHC 35.1 RDW 12.3 Plt Count 317 MPV 8.0 Sodium 137 Potassium 4.3 Chloride 102 Carbon Dioxide 30 Anion Gap 5 L BUN 14.6 Creatinine 0.8 Est GFR (CKD-EPI)AfAm 140.90 Est GFR (CKD-EPI)NonAf 121.57 Random Glucose 94 Calcium 9.6 Total Bilirubin 0.4 AST 49 H ALT 85 H Alkaline Phosphatase 103 Total Protein 7.8 Albumin 3.7 Urine Color Urine Appearance Urine pH Ur Specific [place] Urine Protein Urine Glucose (UA) Urine Ketones Urine Blood Urine Nitrite Urine Bilirubin Urine Urobilinogen Ur Leukocyte Esterase RPR Titer Nonreactive 08/23/19 08:20 WBC RBC Hgb Hct MCV MCH MCHC RDW Plt Count MPV Sodium Potassium Chloride Carbon Dioxide Anion Gap BUN Creatinine Est GFR (CKD-EPI)AfAm Est GFR (CKD-EPI)NonAf Random Glucose Calcium Total Bilirubin AST ALT Alkaline Phosphatase Total Protein Albumin Urine Color Yellow Urine Appearance Clear Urine pH 5.5 Ur Specific [place] 1.018 Urine Protein Negative Urine Glucose (UA) Negative Urine Ketones Negative Urine Blood Negative Urine Nitrite Negative Urine Bilirubin Negative Urine Urobilinogen 0.2 Ur Leukocyte Esterase Negative RPR Titer - Treatment Discharge Condition: Discharge condition good Hospital Course: rehabilitated safely - Medication Discharge Medications: Ambulatory Orders Methadone [Dolophine -] 80 mg PO DAILY 08/21/19 - Medication-Assisted Treatment (MAT) Medication-Assisted Treatment (MAT): No - Discharge Instructions Diet, activity, other medical instructions: Diet:Regular Activity: oob ad tiffani Other medical instructions:follow up with CD aftercare and primary care at [facility] as scheduled. - Diagnosis (1) Methadone maintenance therapy patient Status: Chronic (2) Methamphetamine use disorder, severe Status: Chronic (3) Cannabis abuse, episodic use Status: Chronic (4) Nicotine dependence Status: Chronic Qualifiers: Nicotine product type: cigarettes Substance use status: uncomplicated Qualified Code(s): F17.210 - Nicotine dependence, cigarettes, uncomplicated (5) Cocaine use disorder, moderate, dependence Status: Chronic - Follow-up Referral Minutes to complete discharge: 20 - AMA Did Patient Leave Against Medical Advice: No
[2019-09-18] MEDS: METHADONE HCL 40 MG DISPERSABLE TABLET PO SCH (09:02)
[2019-09-18] MEDS: MINERAL OIL/PETROLAT/WATER TOPICAL CREAM 113 GM JAR TP SCH (09:04)
[2019-09-18] MEDS: PRENATAL VITAMINS W/ FOLIC ACID TABLET (FP) PO SCH (09:04)
[2019-09-18] MEDS: BACITRACIN/POLYMYXIN B SULFATE 15 GM TUBE TP SCH (09:04)
== END 2019-09-18 09:15 | disposition home or self-care (01) | DRG 772 ==
LOC: YASAS 08:05 → Y5N 10:06
PROVIDERS: ADMIT Neuromusculoskeletal Medicine & OMM; ATTEND Neuromusculoskeletal Medicine & OMM
PROC: HZ42ZZZ Group Counseling for Substance Abuse Treatment, Cognitive-Behavioral (ICD-10-PCS; principal; 2019-08-21)
DX: F13.20 Sedative, hypnotic or anxiolytic dependence, uncomplicated (principal); F11.20 Opioid dependence, uncomplicated; F14.20 Cocaine dependence, uncomplicated; F15.10 Other stimulant abuse, uncomplicated; F17.210 Nicotine dependence, cigarettes, uncomplicated; K08.89 Other specified disorders of teeth and supporting structures; K59.00 Constipation, unspecified
CPT/HCPCS: 36415; 80053; 81003; 85027; 86593

== ENCOUNTER 2020-05-31 17:08 | Inpatient (IN) | payer OTHER ==
--- OUTSIDE RECORDS SUMMARY | 2020-05-31 18:26 | XMS ---
:1990 Author Organization [facility] Support Name Relationship Address Phone UE Unavailable Unavailable Unavailable [place] [address] Re-disclosure Warning The records that you are about to access may contain information from federally- assisted alcohol or drug abuse programs. If such information is present, then the following federally mandated warning applies: This information has been disclosed to you from records protected by federal confidentiality rules (42 CFR part 2). The federal rules prohibit you from making any further disclosure of this information unless further disclosure is expressly permitted by the written consent of the person to whom it pertains or as otherwise permitted by 42 CFR part 2. A general authorization for the release of medical or other information is NOT sufficient for this purpose. The Federal rules restrict any use of the information to criminally investigate or prosecute any alcohol or drug abuse patient.The records that you are about to access may contain highly sensitive health information, the redisclosure of which is protected by Article 27-F of the [facility] Public Health law. If you continue you may haveaccess to information: Regarding HIV / AIDS; Provided by facilities licensed or operated by the [facility] Office of Mental Health; or Provided by the [facility] Office for People With Developmental Disabilities. If such information is present, then the following [facility] mandated warning applies: This information has been disclosed to you from confidential records which are protected by state law. State law prohibits you from making any further disclosure of this information without the specific written consent of the person to whom it pertains, or as otherwise permitted by law. Any unauthorized further disclosure in violation of state law may result in a fine or longterm sentence or both. A general authorization for the release of medical or other information is NOT sufficient authorization for further disclosure. Insurance Providers Payer name Policy type Policy ID Covered Covered libertarian's Policy P tayler / Coverage libertarian ID relationship to [employer] ormation type richards [employer] [id number] SP [id number] [employer] [id number] SP [id number] [employer] MEDICAID [id number] SP [id number] Results ID Date Data Source [id number] 02/14/2020 12:00:00 AM EDT [facility] Name Value Range Interpretation Code Description Data Kinga rce(s) Supporting Document(s ) 2018-nCoV [facility] RNA XXX MIRELA+probe- Imp [facility] reported by [employer] ID Date Data Source [id number] 02/12/2020 12:00:00 AM EDT [facility] Name Value Range Interpretation Code Description Data Kinga rce(s) Supporting Document(s ) 2018-nCoV [facility] RNA XXX MIRELA+probe- Imp This [facility] and reported by [employer] ID Date Data Source [id number] 02/04/2020 01:15:00 PM EDT [facility] Name Value Range Interpretation Code Description Data Kinga rce(s) Supporting Document(s ) SARS-COV-2 [facility] PCR This lab was ordered by [facility] and re ported by [facility]. Procedure
--- NOTE | 2020-05-31 18:59 | BHS.RME ---
Substance Use & Tx History - Substance Use History Heroin Substance amount: 5-10 bags Frequency of use: Daily Substance route: Injection (ex: intravenous or skin popping) Date of Last Use: 05/31/20 - Last Treatment Date of last treatment: 08/21/2019-09/18/2019 Where was last treatment: Rehab Physical/Psych/Mental Status - Behavior Eye Contact: Normal - Cooperativeness Cooperativeness: Cooperative - Thinking Thought Processes: Logical Thought content: Future oriented - Physical Health Problems Is patient presently having any pain?: No Does patient presently have any injuries (include location): No Does patient currently have a fever: No Is patient : No COWS - Scale Resting Pulse: 1= [place] 81-100 Sweatin=Flushed/Facial Moisture Restless Observation: 1= Difficult to Sit Still Pupil Size: 0= Normal to Room Light Bone or Joint Aches: 1= Mild Discomfort Runny Nose/ Eye Tearin= Runny Nose/Eyes GI Upset > 30mins: 0= None Tremor Observation: 1= Tremor [place], Not Seen Yawning Observation: 1= 1-2x During Session Anxiety or Irritability: 4=Extreme Anxiety Goose Flesh Skin: 3=Piloerection COWS Score: 16 Treatment Recommendation - Level of Care Level of Care: Opioid Treatment Program (OTP)
[2020-05-31 20:01] VITALS: BMI 24.2
--- NOTE | 2020-05-31 20:16 | HP ---
COWS - Scale Resting Pulse: 1= [place] 81-100 Sweatin=Flushed/Facial Moisture Restless Observation: 1= Difficult to Sit Still Pupil Size: 0= Normal to Room Light Bone or Joint Aches: 1= Mild Discomfort Runny Nose/ Eye Tearin= Runny Nose/Eyes GI Upset > 30mins: 0= None Tremor Observation: 1= Tremor [place], Not Seen Yawning Observation: 1= 1-2x During Session Anxiety or Irritability: 4=Extreme Anxiety Goose Flesh Skin: 3=Piloerection COWS Score: 16 CIWA Score Nausea/Vomitin-No Nausea/No Vomiting Muscle Tremors: 1-None Visible, but [place] Anxiety: 2 Agitation: 1-Slight > Activity Paroxysmal Sweats: No Perspiration Orientation: 0-Oriented Tacttile Disturbances: 0-None Auditory Disturbances: 0-None Visual Disturbances: 0-None Headache: 0-None Present CIWA-Ar Total Score: 4 - Admission Criteria OASAS Guidelines: Admission for Medically Managed Detox: Requires at least one of the followin. CIWA greater than 12 2. Seizures within the past 24 hours 3. Delirium tremens within the past 24 hours 4. Hallucinations within the past 24 hours 5. Acute intervention needed for co occurring medical disorder 6. Acute intervention needed for co occurring psychiatric disorder 7. Severe withdrawal that cannot be handled at a lower level of care (continued vomiting, continued diarrhea, abnormal vital signs) requiring intravenous medication and/or fluids 8. Admitting History and Physical - Smoking History Smoking history: Smoker current status UNK Have you smoked in the past 12 months: Yes Aproximately how many cigarettes per day: 10 Admission [facility] Allergies/Adverse Reactions: Allergies Allergy/AdvReac Type Severity Reaction Status Date / Time No Known Allergies Allergy Verified 05/31/20 19:49 History of Present Illness: 30 y.o. male requesting detox from heroin use , reports 5-10 bags /day iV in hands , needles from the exchange , denies sharing , rpeorts was in MMTP 2 weeks ago , stopped going 2/2 OD , was in hospital ICU intubated and he self- extubated and has had sore throat w/ vocal cord paralysis since ,which has been gradually improving . Firt age of use 19 , OD x3 . Latest use 2 am today . crystal metamphetamine ; 1 gr /day IV cannabis - 1 join /day alcohol 2-3 beers/day tobacco : / ppd PMHX : hep C Meds : denies Exam Limitations: Clinical Condition - Review of Systems Constitutional: Loss of Appetite, Unintentional Wgt. Loss (20 lbs) EENT: reports: See HPI, Throat Pain, Other Respiratory: reports: No Symptoms reported Cardiac: reports: No Symptoms Reported GI: reports: No Symptoms Reported : reports: No Symptoms Reported Musculoskeletal: reports: Muscle Pain Integumentary: reports: See HPI, Other (frompicking at his skin) Neuro: reports: No Symptoms reported Endocrine: reports: No Symptoms Reported Hematology: reports: No Symptoms Reported Psychiatric: reports: Orientated x3, Anxious Patient History - Patient Medical History Hx Asthma: No Hx Chronic Obstructive Pulmonary Disease (COPD): No Hx Cardiac Disorders: No Hx Hypertension: No Hx Seizures: No Hx Diabetes: No Hx Gastrointestinal Disorders: No Hx Genitourinary Disorders: No Hx Sexually Transmitted Disorders: No Hx Renal Disease (ESRD): No Hx Depression: No Hx Suicide Attempt: No Hx Schizophrenia: No - Patient Surgical History Past Surgical History: No Hx Neurologic Surgery: No Hx Cataract Extraction: No Hx Cardiac Surgery: No Hx Lung Surgery: No Hx Breast Surgery: No Hx Breast Biopsy: No Hx Abdominal Surgery: No Hx Appendectomy: No Hx Cholecystectomy: No Hx Genitourinary Surgery: No Hx Section: No Hx Orthopedic Surgery: No Anesthesia Reaction: No - PPD History Date: 08/23/19 - Smoking Cessation Smoking history: Smoker current status UNK Have you smoked in the past 12 months: Yes Aproximately how many cigarettes per day: 10 Cigars Per Day: 0 Hx Chewing Tobacco Use: No - Substances abused Heroin Substance route: Injection Frequency: Daily Amount used: 5 to 10 bags Age of first use: 19 Date of last use: 05/31/20 Alcohol Substance route: Oral Frequency: Daily Amount used: 16 ounces. Age of first use: 16 Date of last use: 05/30/20 Other Other (specify): crystal meth. Substance route: Injection Frequency: Daily Amount used: 1 GRAM Age of first use: 28 Date of last use: 05/30/20 Admission Physical Exam [facility] - Vital Signs Vital Signs: Vital Signs - 24 hr 05/31/20 19:55 Temperature 97.6 F Pulse Rate 98 H Respiratory 18 Rate Blood Pressure 161/79 - Physical General Appearance: Yes: Mild Distress, Anxious HEENTM: Yes: EOMI, Hearing grossly Normal, Normocephalic, Nasal Congestion, Rhinorrhea, Muffled/Hoarse Voice, Other (mising hair ptches since being in a coma) Respiratory: Yes: Lungs Clear, Normal Breath Sounds, No Respiratory Distress, No Accessory Muscle Use Neck: Yes: No masses,lesions,Nodules, Trachea in good position Cardiology: Yes: Regular Rhythm, Regular Rate, S1, S2, Tachycardia Abdominal: Yes: Non Tender, Soft Back: Yes: Normal Inspection Musculoskeletal: Yes: Gait Steady Extremities: Yes: Normal Inspection, Normal Range of Motion, Non-Tender Neurological: Yes: Fully Oriented, Alert, Motor Strength 5/5 Integumentary: Yes: Warm, Track Erazo (bilateral hands , scattered excoriations jaylan UE / LE , hands , faces) - Diagnostic (1) Cannabis abuse, episodic use Current Visit: Yes Status: Chronic (2) Cocaine use disorder, moderate, dependence Current Visit: Yes Status: Chronic (3) Methamphetamine use disorder, severe Current Visit: Yes Status: Chronic (4) Nicotine dependence Current Visit: Yes Status: Chronic Qualifiers: Nicotine product type: cigarettes Substance use status: uncomplicated Qualified Code(s): F17.210 - Nicotine dependence, cigarettes, uncomplicated Breathalyzer - Breathalyzer Breathalyzer: 0 Urine Drug Screen - Test Device Lot number: [id number] Expiration date: 12/15/21 - Control Is test valid?: Yes - Results Drug screen NEGATIVE: No Urine drug screen results: THC-Marijuana, MET-Methamphetamine, AMP-Amphetamines, FEN-Fentanyl, MOP-Opiates, MTD-Methadone Inpatient Rehab Admission - Rehab Decision to Admit Inpatient rehab admission?: No
--- OUTSIDE RECORDS SUMMARY | 2020-05-31 20:21 | XMS ---
:1990 Author Organization [facility] Support Name Relationship Address Phone UE Unavailable Unavailable Unavailable [place] [address] Re-disclosure Warning The records that you are [...] is protected by Article 27-F of the [place] [facility] Public Health law. If you continue you may haveaccess to information: Regarding HIV / AIDS; Provided by facilities licensed or operated by the [facility] Office of Mental Health; or Provided by the [facility] Office for People With Developmental Disabilities. If such information is present, then the following [facility] mandated warning applies: This information has been [...] law may result in a fine or fci sentence or both. A general authorization for the release of medical or other information is NOT sufficient authorization for further disclosure. Insurance Providers Payer name Policy type Policy ID Covered Covered alliance party's Policy P tayler / Coverage alliance party ID relationship to Richards Inf ormation type richards BH-BEACON [id number] SP [id number] [employer] BH-BEACON [id number] SP [id number] [employer] MEDICAID [id number] SP [id number] Results ID Date Data Source [id number] 02/14/2020 12:00:00 AM EDT [facility] Name Value Range Interpretation Code Description Data Kinga rce(s) Supporting Document(s ) 2018-nCoV [facility] RNA XXX MIRELA+probe- Imp This lab [facility] and reported by [employer] ID Date Data Source [id number] 02/12/2020 12:00:00 AM EDT [facility] Name Value Range Interpretation Code Description Data Kinga rce(s) Supporting Document(s ) 2018-nCoV [facility] RNA XXX MIREAL+probe- Imp This lab was ordered by [facility] and reported by [employer] ID Date Data Source [id number] 02/04/2020 01:15:00 PM EDT [facility] Name Value Range Interpretation Code Description Data Kinga rce(s) Supporting Document(s ) SARS-COV-2 [facility] PCR This lab was ordered by [facility] and re ported by [facility]. Procedure
[2020-05-31] MEDS ORDERED: P-EPHED 60MG/TRIPROLIDI 2.5MG TABLET PO PRN (20:22)
[2020-05-31] MEDS ORDERED: MENTHOL/PHENOL 1 EACH UD MM PRN (20:22)
[2020-05-31] MEDS ORDERED: MAG HYDROX/AL HYDROX/SIMETH 30 ML UNIT-DOSE CUP PO PRN (20:22)
[2020-05-31] MEDS ORDERED: IBUPROFEN 400 MG TABLET (FP) PO PRN (20:22)
[2020-05-31] MEDS ORDERED: ACETAMINOPHEN 325 MG TABLET (FP) PO PRN ×2 (20:22)
[2020-05-31] MEDS ORDERED: BISMUTH SUBSALICYLATE 524 MG/30 ML UD PO PRN (20:22)
[2020-05-31] MEDS ORDERED: MAGNESIUM HYDROX 2400MG/30ML ORAL SUSPENSION 30 ML CUP PO PRN (20:22)
[2020-05-31] MEDS ORDERED: NICOTINE POLACRILEX 2 MG GUM BUC PRN (20:22)
[2020-05-31] MEDS ORDERED: guaiFENesin 200 MG/10 ML 10 ML UNIT-DOSE CUPS PO PRN (20:22)
[2020-05-31] MEDS ORDERED: MAGNESIUM CITRATE 300 ML BOTTLE PO PRN (20:22)
[2020-05-31] MEDS ORDERED: ONDANSETRON *ODT* 4 MG TABLET SL PRN (20:22)
[2020-05-31] MEDS ORDERED: METHADONE HCL 10 MG TABLET (FOR DETOX USE ONLY) PO ONE (20:24)
[2020-05-31] MEDS ORDERED: cloNIDine HCL 0.1 MG TABLET PO PRN (20:24)
[2020-05-31] MEDS ORDERED: BACITRACIN 15 GM TUBE TOPICAL OINTMENT TP SCH (22:00)
[2020-05-31] MEDS: METHOCARBAMOL 500 MG TABLET PO PRN (22:16)
[2020-05-31] MEDS: THIAMINE HCL 100 MG TABLET (FP) PO SCH (22:16)
[2020-05-31] MEDS: hydrOXYzine PAMOATE 25 MG CAPSULE (FP) PO PRN (22:16)
[2020-05-31] MEDS: MELATONIN 5 MG TABLETS PO SCH (22:17)
[2020-06-01] MEDS ORDERED: METHADONE HCL 10 MG TABLET (FOR DETOX USE ONLY) ONE (08:41)
[2020-06-01] MEDS ORDERED: METHADONE HCL 5 MG TABLET (FOR DETOX USE ONLY) ONE (08:41)
--- NOTE | 2020-06-01 08:41 | PN ---
S CIWA - CIWA Score Nausea/Vomitin Muscle Tremors: 2 Anxiety: 2 Agitation: 2 Paroxysmal Sweats: 1-Minimal Palms Moist Orientation: 0-Oriented Tacttile Disturbances: 1-Very Mild Itch/Numbness Auditory Disturbances: 0-None Visual Disturbances: 0-None Headache: 2-Mild CIWA-Ar Total Score: 12 BHS COWS - Scale Resting Pulse: 1= [place] 81-100 Sweatin= No chills or Flushing Restless Observation: 0= Sits Still Pupil Size: 1= Pupils >than Normal Bone or Joint Aches: 2= Severe Diffuse Aches Runny Nose/ Eye Tearin= Runny Nose/Eyes GI Upset > 30mins: 2= Nausea/Diarrhea Tremor Observation of Outstretched Hands: 2= Slight Tremor Visible Yawning Observation: 1= 1-2x During Session Anxiety or Irritability: 2=Irritable/Anxious Goose Flesh Skin: 0=Smooth Skin COWS Score: 13 S Progress Note (SOAP) Subjective: alert,irritable,anxious,interrupted sleep,tremor,pain in the body and back Objective: 06/01/20 10:39 Vital Signs Temperature 97.5 F L 06/01/20 08:59 Pulse Rate 85 06/01/20 08:59 Respiratory Rate 16 06/01/20 08:59 Blood Pressure 141/88 06/01/20 08:59 O2 Sat by Pulse Oximetry (%) 100 06/01/20 06:17 06/01/20 10:40 labs pending Assessment: 06/01/20 10:40 withdrawal symptom Plan: continue detox methadone and valium regimen,close monitoring
[2020-06-01] MEDS ORDERED: METHADONE (DETOX) 20 MG, METHADONE (DETOX) 5 MG PO ONE (10:00)
--- NOTE | 2020-06-01 10:06 | EKG ---
Test Reason : Blood Pressure : / mmHG Vent. Rate : 072 BPM Atrial Rate : 072 BPM P-R Int : 148 ms QRS Dur : 100 ms QT Int : 404 ms P-R-T Axes : 072 071 047 degrees QTc Int : 442 ms NORMAL SINUS RHYTHM NORMAL ECG NO PREVIOUS ECGS AVAILABLE Confirmed by Chucky Major ([id number]) on 06/01/2020 10:06:11 AM Referred By: Jacinto Jaime Confirmed By:Chucky Major
[2020-06-01] MEDS: PRENATAL VITAMINS W/ FOLIC ACID TABLET (FP) PO SCH (10:39)
[2020-06-01] MEDS: NICOTINE 7 MG/24 HOURS TOPICAL PATCH TD SCH (10:39)
[2020-06-01] MEDS: BACITRACIN 0.9 GM PACKET TP SCH ×2 (10:41→22:07)
[2020-06-01] MEDS: diazePAM 5 MG TABLET PO SCH ×3 (10:41→22:07)
[2020-06-01 10:46] LABS: HEMATOCRIT 33.2 % (35.4-49); HEMOGLOBIN 11.7 GM/dL (11.7-16.9); MCH 30.8 pg (25.7-33.7); MCHC 35.4 g/dl (32.0-35.9); MEAN CELL VOLUME 86.9 fl (80-96); MEAN PLT VOLUME 8.3 fl (7.5-11.1); PLATELET COUNT 209 K/MM3 (134-434); RBC 3.82 M/mm3 (4.00-5.60); RDW 14.3 % (11.9-15.9); WHITE BLOOD COUNT 4.9 K/mm3 (4.0-10.0)
[2020-06-01 11:00] LABS: BLOOD UREA NITROGEN 16.2 mg/dL (7-18); CALCIUM 8.5 mg/dL (8.5-10.1); CREATININE 0.7 mg/dL (0.55-1.3); POTASSIUM 3.4 mmol/L (3.5-5.1); TOT PROT 6.7 g/dl (6.4-8.2)
[2020-06-01 11:05] LABS: BILIRUBIN,TOTAL 0.3 mg/dL (0.2-1)
[2020-06-01] MEDS ORDERED: POTASSIUM CHLORIDE TABS 20 MEQ TABLET.ER (FP) PO ONE (17:11)
[2020-06-01] MEDS: THIAMINE HCL 100 MG TABLET (FP) PO SCH (22:07)
[2020-06-01] MEDS: MELATONIN 5 MG TABLETS PO SCH (22:07)
[2020-06-02] MEDS: diazePAM 5 MG TABLET PO SCH ×4 (06:43→22:07)
[2020-06-02] MEDS ORDERED: METHADONE HCL 10 MG TABLET (FOR DETOX USE ONLY) PO ONE (10:00)
--- NOTE | 2020-06-02 10:24 | PN ---
[facility] CIWA - CIWA Score Nausea/Vomitin-Mild Nausea/No Vomiting Muscle Tremors: 2 Anxiety: 2 Agitation: 2 Paroxysmal Sweats: 1-Minimal Palms Moist Orientation: 0-Oriented Tacttile Disturbances: 1-Very Mild Itch/Numbness Auditory Disturbances: 0-None Visual Disturbances: 0-None Headache: 1-Very Mild CIWA-Ar Total Score: 10 BHS COWS - Scale Resting Pulse: 0= [place] 80 or Below Sweatin= No chills or Flushing Restless Observation: 0= Sits Still Pupil Size: 0= Normal to Room Light Bone or Joint Aches: 2= Severe Diffuse Aches Runny Nose/ Eye Tearin= Nasal Congestion GI Upset > 30mins: 2= Nausea/Diarrhea Tremor Observation of Outstretched Hands: 2= Slight Tremor Visible Yawning Observation: 1= 1-2x During Session Anxiety or Irritability: 2=Irritable/Anxious Goose Flesh Skin: 0=Smooth Skin COWS Score: 10 [facility] Progress Note (SOAP) Subjective: alert,irritable,anxious,interrupted sleep,tremor,pain in the nody and back Objective: 06/02/20 14:17 Vital Signs Temperature 97.5 F L 06/02/20 12:56 Pulse Rate 62 06/02/20 12:56 Respiratory Rate 18 06/02/20 12:56 Blood Pressure 113/69 06/02/20 12:56 O2 Sat by Pulse Oximetry (%) 97 06/02/20 12:56 06/02/20 14:17 Laboratory Last Values WBC 4.9 K/mm3 (4.0-10.0) 06/01/20 08:00 RBC 3.82 M/mm3 (4.00-5.60) L 06/01/20 08:00 Hgb 11.7 GM/dL (11.7-16.9) 06/01/20 08:00 Hct 33.2 % (35.4-49) L 06/01/20 08:00 MCV 86.9 fl (80-96) 06/01/20 08:00 MCH 30.8 pg (25.7-33.7) 06/01/20 08:00 MCHC 35.4 g/dl (32.0-35.9) 06/01/20 08:00 RDW 14.3 % (11.9-15.9) D 06/01/20 08:00 Plt Count 209 K/MM3 (134-434) D 06/01/20 08:00 MPV 8.3 fl (7.5-11.1) 06/01/20 08:00 Sodium 142 mmol/L (136-145) 06/01/20 08:00 Potassium 3.4 mmol/L (3.5-5.1) L 06/01/20 08:00 Chloride 108 mmol/L (98-107) H 06/01/20 08:00 Carbon Dioxide 29 mmol/L (21-32) 06/01/20 08:00 Anion Gap 6 MMOL/L (8-16) L 06/01/20 08:00 BUN 16.2 mg/dL (7-18) 06/01/20 08:00 Creatinine 0.7 mg/dL (0.55-1.3) 06/01/20 08:00 Est GFR (CKD-EPI)AfAm 147.81 06/01/20 08:00 Est GFR (CKD-EPI)NonAf 127.53 06/01/20 08:00 Random Glucose 87 mg/dL (74-106) 06/01/20 08:00 Calcium 8.5 mg/dL (8.5-10.1) 06/01/20 08:00 Total Bilirubin 0.3 mg/dL (0.2-1) 06/01/20 08:00 AST 22 U/L (15-37) 06/01/20 08:00 ALT 42 U/L (13-61) 06/01/20 08:00 Alkaline Phosphatase 68 U/L (45-117) 06/01/20 08:00 Total Protein 6.7 g/dl (6.4-8.2) 06/01/20 08:00 Albumin 3.0 g/dl (3.4-5.0) L 06/01/20 08:00 Syphilis Serology Non-reactive (NONREACTIVE) 06/01/20 08:00 Assessment: 06/02/20 14:17 withdrawal symptom Plan: continue detox methadone and valium regimen,k dur 20 meq po daily,repeat k in am
[2020-06-02] MEDS: PRENATAL VITAMINS W/ FOLIC ACID TABLET (FP) PO SCH (10:56)
[2020-06-02] MEDS: NICOTINE 7 MG/24 HOURS TOPICAL PATCH TD SCH (10:56)
[2020-06-02] MEDS: POTASSIUM CHLORIDE TABS 20 MEQ TABLET.ER (FP) PO SCH (10:56)
[2020-06-02] MEDS: BACITRACIN 0.9 GM PACKET TP SCH ×2 (10:57→22:07)
[2020-06-02] MEDS: THIAMINE HCL 100 MG TABLET (FP) PO SCH (22:07)
[2020-06-02] MEDS: MELATONIN 5 MG TABLETS PO SCH (22:07)
[2020-06-03] MEDS: diazePAM 5 MG TABLET PO SCH ×3 (05:11→22:11)
--- NOTE | 2020-06-03 08:28 | PN ---
[facility] CIWA - CIWA Score Nausea/Vomitin-Mild Nausea/No Vomiting Muscle Tremors: 2 Anxiety: 2 Agitation: 1-Slight > Activity Paroxysmal Sweats: No Perspiration Orientation: 0-Oriented Tacttile Disturbances: 1-Very Mild Itch/Numbness Auditory Disturbances: 0-None Visual Disturbances: 0-None Headache: 1-Very Mild CIWA-Ar Total Score: 8 BHS COWS - Scale Resting Pulse: 1= [place] 81-100 Sweatin= No chills or Flushing Restless Observation: 0= Sits Still Pupil Size: 1= Pupils >than Normal Bone or Joint Aches: 1= Mild Discomfort Runny Nose/ Eye Tearin= Nasal Congestion GI Upset > 30mins: 1= Stomach Cramp Tremor Observation of Outstretched Hands: 2= Slight Tremor Visible Yawning Observation: 0= None Anxiety or Irritability: 2=Irritable/Anxious Goose Flesh Skin: 0=Smooth Skin COWS Score: 9 BHS Progress Note (SOAP) Subjective: alert,irritable,anxious,interrupted sleep,aching pain in the body and back Objective: 06/03/20 12:57 Vital Signs Temperature 98.5 F 06/03/20 09:05 Pulse Rate 89 06/03/20 09:05 Respiratory Rate 18 06/03/20 09:05 Blood Pressure 123/68 06/03/20 09:05 O2 Sat by Pulse Oximetry (%) 99 06/03/20 06:23 Laboratory Results - last 24 hr 05/31/20 06/03/20 20:30 08:00 Potassium 4.5 COVID-19 (MIRELA) Not detected Assessment: 06/03/20 12:58 withdrawal symptom Plan: continue methadone and valium regimen,d/c k dur
[2020-06-03] MEDS ORDERED: METHADONE HCL 5 MG TABLET (FOR DETOX USE ONLY) ONE (08:43)
[2020-06-03] MEDS ORDERED: METHADONE HCL 10 MG TABLET (FOR DETOX USE ONLY) ONE (08:43)
[2020-06-03] MEDS: diazePAM 5 MG TABLET PO PRN (08:44)
[2020-06-03] MEDS ORDERED: METHADONE (DETOX) 10 MG, METHADONE (DETOX) 5 MG PO ONE (10:00)
[2020-06-03] MEDS: BACITRACIN 0.9 GM PACKET TP SCH ×2 (10:25→22:12)
[2020-06-03] MEDS: PRENATAL VITAMINS W/ FOLIC ACID TABLET (FP) PO SCH (10:26)
[2020-06-03] MEDS: NICOTINE 7 MG/24 HOURS TOPICAL PATCH TD SCH (10:26)
[2020-06-03] MEDS: POTASSIUM CHLORIDE TABS 20 MEQ TABLET.ER (FP) PO SCH (10:26)
[2020-06-03] MEDS: THIAMINE HCL 100 MG TABLET (FP) PO SCH (22:11)
[2020-06-03] MEDS: MELATONIN 5 MG TABLETS PO SCH (22:11)
[2020-06-04] MEDS: diazePAM 5 MG TABLET PO SCH ×2 (05:18→18:30)
[2020-06-04] MEDS ORDERED: METHADONE HCL 10 MG TABLET (FOR DETOX USE ONLY) PO ONE (10:00)
[2020-06-04] MEDS: hydrOXYzine PAMOATE 25 MG CAPSULE (FP) PO PRN (10:25)
[2020-06-04] MEDS: METHOCARBAMOL 500 MG TABLET PO PRN (10:25)
[2020-06-04] MEDS: diazePAM 5 MG TABLET PO PRN (10:25)
[2020-06-04] MEDS: NICOTINE 7 MG/24 HOURS TOPICAL PATCH TD SCH (10:26)
[2020-06-04] MEDS: PRENATAL VITAMINS W/ FOLIC ACID TABLET (FP) PO SCH (10:26)
[2020-06-04] MEDS: BACITRACIN 0.9 GM PACKET TP SCH ×2 (10:26→23:05)
--- NOTE | 2020-06-04 10:27 | PN ---
[facility] CIWA - CIWA Score Nausea/Vomitin-No Nausea/No Vomiting Muscle Tremors: None Anxiety: 2 Agitation: 0-Normal Activity Paroxysmal Sweats: 2 Orientation: 0-Oriented Tacttile Disturbances: 0-None Auditory Disturbances: 0-None Visual Disturbances: 0-None Headache: 0-None Present CIWA-Ar Total Score: 4 S COWS - Scale Resting Pulse: 1= [place] 81-100 Sweatin= No chills or Flushing Restless Observation: 0= Sits Still Pupil Size: 0= Normal to Room Light Bone or Joint Aches: 2= Severe Diffuse Aches Runny Nose/ Eye Tearin= None GI Upset > 30mins: 0= None Tremor Observation of Outstretched Hands: 0= None Yawning Observation: 0= None Anxiety or Irritability: 2=Irritable/Anxious Goose Flesh Skin: 0=Smooth Skin COWS Score: 5 [facility] Progress Note (SOAP) Subjective: c/o mild withdrawal symptoms. Objective: 06/04/20 10:26 Vital Signs 06/04/20 06/04/20 06:04 09:09 Temperature 97.1 F L 97.3 F L Pulse Rate 62 90 Respiratory 18 18 Rate Blood Pressure 116/52 L 127/78 O2 Sat by Pulse 98 Oximetry (%) Laboratory Last Values WBC 4.9 K/mm3 (4.0-10.0) 06/01/20 08:00 RBC 3.82 M/mm3 (4.00-5.60) L 06/01/20 08:00 Hgb 11.7 GM/dL (11.7-16.9) 06/01/20 08:00 Hct 33.2 % (35.4-49) L 06/01/20 08:00 MCV 86.9 fl (80-96) 06/01/20 08:00 MCH 30.8 pg (25.7-33.7) 06/01/20 08:00 MCHC 35.4 g/dl (32.0-35.9) 06/01/20 08:00 RDW 14.3 % (11.9-15.9) D 06/01/20 08:00 Plt Count 209 K/MM3 (134-434) D 06/01/20 08:00 MPV 8.3 fl (7.5-11.1) 06/01/20 08:00 Sodium 142 mmol/L (136-145) 06/01/20 08:00 Potassium 4.5 mmol/L (3.5-5.1) 06/03/20 08:00 Chloride 108 mmol/L (98-107) H 06/01/20 08:00 Carbon Dioxide 29 mmol/L (21-32) 06/01/20 08:00 Anion Gap 6 MMOL/L (8-16) L 06/01/20 08:00 BUN 16.2 mg/dL (7-18) 06/01/20 08:00 Creatinine 0.7 mg/dL (0.55-1.3) 06/01/20 08:00 Est GFR (CKD-EPI)AfAm 147.81 06/01/20 08:00 Est GFR (CKD-EPI)NonAf 127.53 06/01/20 08:00 Random Glucose 87 mg/dL (74-106) 06/01/20 08:00 Calcium 8.5 mg/dL (8.5-10.1) 06/01/20 08:00 Total Bilirubin 0.3 mg/dL (0.2-1) 06/01/20 08:00 AST 22 U/L (15-37) 06/01/20 08:00 ALT 42 U/L (13-61) 06/01/20 08:00 Alkaline Phosphatase 68 U/L (45-117) 06/01/20 08:00 Total Protein 6.7 g/dl (6.4-8.2) 06/01/20 08:00 Albumin 3.0 g/dl (3.4-5.0) L 06/01/20 08:00 Syphilis Serology Non-reactive (NONREACTIVE) 06/01/20 08:00 COVID-19 (MIRELA) Not detected (Not Detected) 05/31/20 20:30 Labs noted. Assessment: 06/04/20 10:27 AOX3, in no acute respiratory distress. Full ROM, ambulating in the unit. Mild Withdrawal symptoms. For d/c tomorrow. 06/04/20 10:28 Plan: continue detox. D/C in AM.
[2020-06-04] MEDS: MELATONIN 5 MG TABLETS PO SCH (23:05)
[2020-06-04] MEDS: THIAMINE HCL 100 MG TABLET (FP) PO SCH (23:05)
[2020-06-05] MEDS ORDERED: METHADONE HCL 5 MG TABLET (FOR DETOX USE ONLY) PO ONE (06:00)
[2020-06-05] MEDS ORDERED: diazePAM 5 MG TABLET PO ONE (06:00)
--- NOTE | 2020-06-05 08:40 | DS ---
[facility] Detox Discharge Summary Admission Date: 05/31/20 Discharge Date: 06/05/20 - History Present History: Alcohol Dependence, Opioid Dependence Additional Comments: 30 years old male was admitted on 05/31/20 for alcohol and opiate withdrawal sx management treated with valium and methadone detox regiments mr lugo has completed the valium and methadone regiments and is tolerated well General Appearance: Yes: no Distress, mild Anxious HEENTM: Yes: EOMI, Hearing grossly Normal, Normocephalic, mild Nasal Congestion, little Rhinorrhea, limited conversation with staff Muffled/Hoarse Voice, Other (mising hair ptches since being in a coma) Respiratory: Yes: Lungs Clear, Normal Breath Sounds, No Respiratory Distress, No Accessory Muscle Use Neck: Yes: No masses,lesions,Nodules, Trachea in good position Cardiology: Yes: Regular Rhythm, Regular Rate, S1, S2, Tachycardia Abdominal: Yes: Non Tender, Soft Back: Yes: Normal Inspection Musculoskeletal: Yes: Gait Steady Extremities: Yes: Normal Inspection, Normal Range of Motion, Non-Tender Neurological: Yes: Fully Oriented, Alert, Motor Strength 5/5 Integumentary: Yes: Warm, Track Erazo (bilateral hands , scattered excoriations jaylan UE / LE , hands , faces) Pertinent Past History: time for discharge 48 minutes transferred order set from detox to rehab - Physical Exam Results Vital Signs: Vital Signs Temperature 97.3 F L 06/05/20 05:19 Pulse Rate 76 06/05/20 05:19 Respiratory Rate 18 06/05/20 05:19 Blood Pressure 124/83 06/05/20 05:19 O2 Sat by Pulse Oximetry (%) 98 06/05/20 05:19 Pertinent Admission Physical Exam Findings: alcohol and opiate withdrawal Vital Signs - 24 hr 06/04/20 06/04/20 06/04/20 12:49 16:49 20:49 Temperature 97.1 F L 97.1 F L 97.3 F L Pulse Rate 87 95 H 87 Respiratory 16 18 18 Rate Blood Pressure 129/79 135/81 128/87 O2 Sat by Pulse 99 Oximetry (%) 06/05/20 06/05/20 05:19 08:53 Temperature 97.3 F L 98.2 F Pulse Rate 76 84 Respiratory 18 18 Rate Blood Pressure 124/83 126/85 O2 Sat by Pulse 98 Oximetry (%) Laboratory Tests 05/31/20 06/01/20 06/01/20 20:30 08:00 08:00 WBC 4.9 RBC 3.82 L Hgb 11.7 Hct 33.2 L MCV 86.9 MCH 30.8 MCHC 35.4 RDW 14.3 D Plt Count 209 D MPV 8.3 Sodium Potassium Chloride Carbon Dioxide Anion Gap BUN Creatinine Est GFR (CKD-EPI)AfAm Est GFR (CKD-EPI)NonAf Random Glucose Calcium Total Bilirubin AST ALT Alkaline Phosphatase Total Protein Albumin Syphilis Serology Non-reactive COVID-19 (MIRELA) Not detected 06/01/20 06/03/20 08:00 08:00 WBC RBC Hgb Hct MCV MCH MCHC RDW Plt Count MPV Sodium 142 Potassium 3.4 L 4.5 Chloride 108 H Carbon Dioxide 29 Anion Gap 6 L BUN 16.2 Creatinine 0.7 Est GFR (CKD-EPI)AfAm 147.81 Est GFR (CKD-EPI)NonAf 127.53 Random Glucose 87 Calcium 8.5 Total Bilirubin 0.3 AST 22 ALT 42 Alkaline Phosphatase 68 Total Protein 6.7 Albumin 3.0 L Syphilis Serology COVID-19 (MIRELA) normal K+ serum - Treatment Hospital Course: Detox Protocol Followed, Detoxed Safely, Responded well, Discharged Condition Good, Rehab Referral Accepted Patient has Accepted a Rehab Referral to: [facility] - Medication Discharge Medications: Ambulatory Orders Naloxone HCl [Narcan] 4 mg NS ASDIR PRN #1 spray 06/05/20 - Diagnosis (1) Alcohol dependence, uncomplicated Current Visit: Yes Status: Acute (2) Opioid dependence, uncomplicated Current Visit: Yes Status: Acute (3) Nicotine dependence Current Visit: Yes Status: Acute Qualifiers: Nicotine product type: cigarettes Substance use status: in withdrawal Qualified Code(s): F17.213 - Nicotine dependence, cigarettes, with withdrawal (4) Substance induced mood disorder Current Visit: Yes Status: Suspected - AMA Did Patient Leave Against Medical Advice: No CIWA Score - CIWA Score Nausea/Vomitin-No Nausea/No Vomiting Muscle Tremors: None Anxiety: 2 Agitation: 0-Normal Activity Paroxysmal Sweats: 1-Minimal Palms Moist Orientation: 0-Oriented Tacttile Disturbances: 0-None Auditory Disturbances: 0-None Visual Disturbances: 0-None Headache: 0-None Present CIWA-Ar Total Score: 3 COWS (PN) - Opiate Withdrawal Resting Pulse: 0= [place] 80 or Below Sweatin= No chills or Flushing Restless Observation: 0= Sits Still Pupil Size: 0= Normal to Room Light Bone or Joint Aches: 1= Mild Discomfort Runny Nose/ Eye Tearin= None GI Upset > 30mins: 0= None Tremor Observation of Outstretched Hands: 1= Tremor [place], Not Seen Yawning Observation: 0= None Anxiety or Irritability: 1=Feels Anxious/Irritable Goose Flesh Skin: 0=Smooth Skin COWS Score: 3
[2020-06-05 09:35] VITALS: BP 126/85; PULSE 84; TEMP 98.2
[2020-06-05] MEDS: BACITRACIN 0.9 GM PACKET TP SCH (11:14)
[2020-06-05] MEDS: NICOTINE 7 MG/24 HOURS TOPICAL PATCH TD SCH (11:14)
[2020-06-05] MEDS: PRENATAL VITAMINS W/ FOLIC ACID TABLET (FP) PO SCH (11:14)
== END 2020-06-05 11:37 | disposition other institution (70) | DRG 773 ==
LOC: YASAS 17:08 → Y3N 20:17
PROVIDERS: ADMIT Allergy & Immunology; ATTEND Allergy & Immunology
PROC: HZ2ZZZZ Detoxification Services for Substance Abuse Treatment (ICD-10-PCS; principal; 2020-05-31)
DX: F10.230 Alcohol dependence with withdrawal, uncomplicated (principal); F11.23 Opioid dependence with withdrawal; F15.20 Other stimulant dependence, uncomplicated; F17.213 Nicotine dependence, cigarettes, with withdrawal; F19.24 Other psychoactive substance dependence with psychoactive substance-induced mood disorder; F42.4 Excoriation (skin-picking) disorder; R63.4 Abnormal weight loss; Z68.24 Body mass index [BMI] 24.0-24.9, adult
CPT/HCPCS: 36415; 80053; 84132; 85027; 86780; 93005; 93010; U0003

== ENCOUNTER 2020-06-05 11:44 | Inpatient (IN) | payer OTHER ==
--- NOTE | 2020-06-05 11:15 | HP ---
[facility] Rehab Assess/Revision - Admission History Admitted to Rehab from: [facility] Date of Admission to Rehab: 06/05/20 - Findings Detox History & Physical reviewed: Yes Concur with findings: Yes Comments/Additional Findings: transferred from detox to rehab admission as per protocol Inpatient Rehab Admission - Rehab Decision to Admit Inpatient rehab admission?: Yes - Initial Determination Are CD services needed?: Yes Free of communicable disease: Yes Not in need of hospitalization: Yes - Rehab Admission Criteria Previous failed treatment: Yes Poor recovery environment: Yes Comorbidities: Yes Lacks judgement: Yes Patient is meeting Inpatient Rehab admission criteria:: Yes
[~2020-06-05 11:44] MED LIST: ACETAMINOPHEN 325 MG TABLET (FP) PO PRN; IBUPROFEN 400 MG TABLET (FP) PO PRN; LOPERAMIDE HCL 2 MG CAPSULE PO PRN; MAG HYDROX/AL HYDROX/SIMETH 30 ML UNIT-DOSE CUP PO PRN; MAGNESIUM CITRATE 300 ML BOTTLE PO PRN; MAGNESIUM HYDROX 2400MG/30ML ORAL SUSPENSION 30 ML CUP PO PRN; P-EPHED 60MG/TRIPROLIDI 2.5MG TABLET PO PRN; guaiFENesin 200 MG/10 ML 10 ML UNIT-DOSE CUPS PO PRN
--- OUTSIDE RECORDS SUMMARY | 2020-06-05 11:48 | XMS ---
:1990 Author Organization [facility] Support Name Relationship Address Phone UE, UNEMPLOYED Unavailable Unavailable Unavailable UE Unavailable Unavailable Unavailable [place] [address] Re-disclosure Warning The records that you are [...] is protected by Article 27-F of the [facility] Public Health law. If you continue you may haveaccess to information: Regarding HIV / AIDS; Provided by facilities licensed or operated by the [facility] Office of Mental Health; or Provided by the [facility] Office for People With Developmental Disabilities. If such information is present, then the following [facility] mandated warning applies: This information has been [...] law may result in a fine or alf sentence or both. A general authorization for the release of medical or other information is NOT sufficient authorization for further disclosure. Insurance Providers Payer name Policy type Policy ID Covered Covered libertarian's Policy P tayler / Coverage libertarian ID relationship to Richards Inf ormation type richards BH-BEACON [id number] SP [id number] [employer] BH-BEACON [id number] SP [id number] [employer] MEDICAID [id number] SP [id number] Results ID Date Data Source [id number] 05/31/2020 08:30:00 PM EDT [facility] Name Value Range Interpretation Description Data Sup porting Code Source(s) Document(s ) SARS [facility] coronavirus 2 RNA This lab was ordered by [facility] jose angel Tillman and reported by [employer]. ID Date Data Source [id number] 02/14/2020 12:00:00 AM EDT [facility] Name Value Range Interpretation Code Description Data Kinga rce(s) Supporting Document(s ) 2018-nCoV [facility] RNA XXX MIRELA+probe- Imp This lab was [facility] by [facility] and reported by [employer] ID Date Data Source [id number] 02/12/2020 12:00:00 AM EDT [facility] Name Value Range Interpretation Code Description Data Kinga rce(s) Supporting Document(s ) 2018-nCoV [facility] RNA XXX MIRELA+probe- Imp [facility] and reported by [employer] ID Date Data Source [id number] 02/04/2020 01:15:00 PM EDT [facility] Name Value Range Interpretation Code Description Data Kinga rce(s) Supporting Document(s ) SARS-COV-2 [facility] PCR This lab was ordered by [facility] and re ported by [facility]. Procedure
--- OUTSIDE RECORDS SUMMARY | 2020-06-05 11:49 | XMS ---
:1990 Author Organization [facility] Support Name Relationship Address Phone UE, UNEMPLOYED Unavailable Unavailable Unavailable UE Unavailable Unavailable Unavailable [place] [address] Re-disclosure Warning The records that you are [...] is protected by Article 27-F of the [facility] Public Health law. If you continue you may haveaccess to information: Regarding HIV / AIDS; Provided by facilities licensed or operated by the [facility] Office of Mental Health; or Provided by the [facility] Office for People With Developmental Disabilities. If such information is present, then the following [facility] mandated warning applies: This information has [...] law may result in a fine or residential sentence or both. A general authorization for the release of medical or other information is NOT sufficient authorization for further disclosure. Insurance Providers Payer name Policy type Policy ID Covered Covered republican's Policy P tayler / Coverage republican ID relationship to Richards Inf ormation type richards BH-BEACON [id number] SP [id number] [facility] BH-BEACON [id number] SP [id number] [employer] MEDICAID [id number] SP [id number] Results ID Date Data Source [id number] 05/31/2020 08:30:00 PM EDT [facility] Name Value Range Interpretation Description Data Sup porting Code Source(s) Document(s ) SARS [facility] coronavirus 2 RNA This lab was ordered by [facility] jose angel Tillman and reported by [facility]. ID Date Data Source [id number] 02/14/2020 12:00:00 AM EDT [facility] Name Value Range Interpretation Code Description Data Kinga rce(s) Supporting Document(s ) 2018-nCoV [facility] RNA XXX MIRELA+probe- Imp [facility] and reported by [employer] ID Date Data Source [id number] 02/12/2020 12:00:00 AM EDT [facility] Name Value Range Interpretation Code Description Data Kinga rce(s) Supporting Document(s ) 2018-nCoV [facility] RNA XXX MIRELA+probe- Imp This lab [facility] and reported by [employer] ID Date Data Source [id number] 02/04/2020 01:15:00 PM EDT [facility] Name Value Range Interpretation Code Description Data Kinga rce(s) Supporting Document(s ) SARS-COV-2 [facility] PCR This lab was ordered by [facility] and re ported by [facility]. Procedure
[2020-06-05] MEDS: BACITRACIN 0.9 GM PACKET TP SCH ×2 (16:01→21:50)
[2020-06-05] MEDS: MELATONIN 5 MG TABLETS PO SCH (21:50)
[2020-06-05] MEDS: THIAMINE HCL 100 MG TABLET (FP) PO SCH (21:50)
[2020-06-05] MEDS ORDERED: hydrOXYzine PAMOATE 25 MG CAPSULE (FP) PO ONE (22:00)
[2020-06-05] MEDS: NICOTINE POLACRILEX 2 MG GUM BC PRN (22:15)
[2020-06-06] MEDS: BACITRACIN 0.9 GM PACKET TP SCH ×3 (06:47→22:06)
[2020-06-06] MEDS: PRENATAL VITAMINS W/ FOLIC ACID TABLET (FP) PO SCH (11:07)
[2020-06-06] MEDS: NICOTINE 7 MG/24 HOURS TOPICAL PATCH TD SCH (11:07)
[2020-06-06] MEDS: MELATONIN 5 MG TABLETS PO SCH (22:06)
[2020-06-06] MEDS: THIAMINE HCL 100 MG TABLET (FP) PO SCH (22:06)
[2020-06-07] MEDS: BACITRACIN 0.9 GM PACKET TP SCH ×3 (06:59→21:33)
[2020-06-07] MEDS: NICOTINE 7 MG/24 HOURS TOPICAL PATCH TD SCH (11:07)
[2020-06-07] MEDS: PRENATAL VITAMINS W/ FOLIC ACID TABLET (FP) PO SCH (11:07)
--- NOTE | 2020-06-07 12:22 | PN ---
"[facility] Progress Note Note: Data Detail Level: Printer-Friendly View Extended View Confidential Drug Utilization Report Search Terms: ana lugo, 1990Search Date: 06/07/2020 12:20:25 PM The Drug Utilization Report below displays all of the controlled substance prescriptions, if any, that your patient has filled in the last twelve months. The information displayed on this report is compiled from pharmacy submissions to the Department, and accurately reflects the information as submitted by the pharmacies. This report was requested by: Krystina Tirado | Reference #: [id number] There are no results for the search terms that you entered. Pt will meet with his counselor to set up CD aftercare referral for Suboxone MAT"
[2020-06-07] MEDS ORDERED: hydrOXYzine PAMOATE 25 MG CAPSULE (FP) PO PRN (12:29)
--- NOTE | 2020-06-07 12:52 | CONSULT ---
[facility] Psychiatric Consult - Data Date of interview: 06/07/20 Admission source: 3N Identifying data: Mr Daly is a 30 years old single male, unemployed receiving food stamps, homeless referred from detox on 06/05/20 for inpatient rehabilitation treatment for opoid, cannabis and methamphetamine Substance Abuse History: Reports history of heroin, marijuana and crystal meth use. Refer to addiction counselor's summary for further information Medical History: Significant for hepatitis C diagnosed in 2017. Smokes 10 cigarettes daily Psychiatric History: Patient is known for 2 previous admission to this facility. He denies history of previous psychiatric treament. However, reports feeling anxious and sleeping poorly. Requests to be ordered Trazadone 100 mg/hs for insomnia to which he responded well in the past Physical/Sexual Abuse/Trauma History: Denies history of abuse as a child or DV relationship as an adult Mental Status Exam - Mental Status Exam Alert and Oriented to: Time, Place, Person Cognitive Function: Fair Patient Appearance: Disheveled Mood: Anxious Affect: Appropriate Patient Behavior: Cooperative Speech Pattern: Clear Voice Loudness: Normal Thought Process: Intact, Goal Oriented Hallucinations: Denies Suicidal Ideation: Denies Homicidal Ideation: Denies Insight/Judgement: Poor Sleep: Poorly Appetite: Fair Muscle strength/Tone: Normal Gait/Station: Normal Psychiatric Findings - Problem List ([place] 1, 2,3) (1) Substance-induced anxiety disorder Current Visit: Yes Status: Acute (2) Substance-induced sleep disorder Current Visit: Yes Status: Acute (3) Opioid dependence Current Visit: Yes Status: Acute (4) Cannabis abuse Current Visit: Yes Status: Acute (5) Methamphetamine dependence Current Visit: Yes Status: Acute (6) Nicotine dependence Current Visit: No Status: Chronic Qualifiers: Nicotine product type: cigarettes Substance use status: in withdrawal Qualified Code(s): F17.213 - Nicotine dependence, cigarettes, with withdrawal (7) Hepatitis C Current Visit: Yes Status: Chronic - Initial Treatment Plan Initial Treatment Plan: 1) Start Trazadone 100 mg po HS and Vistaril 50 mg po Q 4hrs prn for anxiety. 2) Continue inpatient rehabilitation
[2020-06-07] MEDS: hydrOXYzine PAMOATE 50 MG CAPSULE (FP) PO PRN ×2 (16:41→21:34)
[2020-06-07] MEDS: NICOTINE POLACRILEX 2 MG GUM BC PRN (20:15)
[2020-06-07] MEDS: MELATONIN 5 MG TABLETS PO SCH (21:33)
[2020-06-07] MEDS: traZODone HCL 100 MG TABLET (FP) PO SCH (21:34)
[2020-06-07] MEDS: THIAMINE HCL 100 MG TABLET (FP) PO SCH (21:34)
[2020-06-08] MEDS: BACITRACIN 0.9 GM PACKET TP SCH ×3 (06:48→21:56)
[2020-06-08] MEDS: NICOTINE 7 MG/24 HOURS TOPICAL PATCH TD SCH (09:44)
[2020-06-08] MEDS: hydrOXYzine PAMOATE 50 MG CAPSULE (FP) PO PRN ×3 (09:45→21:56)
[2020-06-08] MEDS: PRENATAL VITAMINS W/ FOLIC ACID TABLET (FP) PO SCH (09:45)
[2020-06-08] MEDS ORDERED: BUPRENORPHINE/NALOXONE 2 MG/0.5 MG FILM PACKET SL ONE (09:55)
--- NOTE | 2020-06-08 09:55 | PN ---
[facility] COWS - Scale Resting Pulse: 2= [place] 101-120 Sweatin= Chills/Flushing Restless Observation: 3= Extraneous Movement Pupil Size: 0= Normal to Room Light (5 mm) Bone or Joint Aches: 4=Acute Joint/Muscle Pain Runny Nose/ Eye Tearin= Runny Nose/Eyes GI Upset > 30mins: 2= Nausea/Diarrhea Tremor Observation of Outstretched Hands: 1= Tremor [place], Not Seen Yawning Observation: 0= None Anxiety or Irritability: 2=Irritable/Anxious Goose Flesh Skin: 0=Smooth Skin COWS Score: 17 [facility] Progress Note (SOAP) Subjective: Pt met with his counselor yesterday regarding request to start on Suboxone MAT. Reports previous "suboxone treatment in 2016 for a few months but was not serious about it". Pt has been connected to an aftercare program with Suboxone provider Dr. Jeanine Bennett at [facility]. Pt is s/p Heroin detox from [address] [place] [address] and completed on 06/05/20. Hx of heroin overdose and Intubation Objective: 06/08/20 11:03 Vital Signs - 24 hr 06/07/20 06/08/20 14:30 06:46 O2 Sat by Pulse 98 98 Oximetry (%) URINE DRUG SCREEN RESULTS Drug Screen Negative Yes Urine Drug Screen Results THC-Marijuana,BZO-Benzodiazepines,MTD-Methadone Alert o x 3 nad, no resp difficulty Head:Normocephalic; geoff, eomi, Neck;supple, no jvd oob ambulating with steady gait MSK:Active FROM, all limbs Assessment: 06/08/20 11:05 SONJA Pt requesting Suboxone MAT Plan: Start Suboxone 2mg/0.5 mg sl now and evaluate in the morning Adjust dose as needed.
[2020-06-08] MEDS: NICOTINE POLACRILEX 2 MG GUM BC PRN (18:30)
[2020-06-08] MEDS: THIAMINE HCL 100 MG TABLET (FP) PO SCH (21:56)
[2020-06-08] MEDS: traZODone HCL 100 MG TABLET (FP) PO SCH (21:56)
[2020-06-08] MEDS: MELATONIN 5 MG TABLETS PO SCH (21:56)
[2020-06-09] MEDS: BACITRACIN 0.9 GM PACKET TP SCH ×3 (07:03→21:32)
[2020-06-09] MEDS: PRENATAL VITAMINS W/ FOLIC ACID TABLET (FP) PO SCH (10:59)
[2020-06-09] MEDS: NICOTINE 7 MG/24 HOURS TOPICAL PATCH TD SCH (10:59)
[2020-06-09] MEDS: hydrOXYzine PAMOATE 50 MG CAPSULE (FP) PO PRN ×2 (11:00→21:32)
[2020-06-09] MEDS ORDERED: BUPRENORPHINE/NALOXONE 4 MG/1 MG FILM PACKET SL ONE (11:15)
[2020-06-09] MEDS: NICOTINE POLACRILEX 2 MG GUM BC PRN (20:18)
[2020-06-09] MEDS: traZODone HCL 100 MG TABLET (FP) PO SCH (21:33)
[2020-06-09] MEDS: THIAMINE HCL 100 MG TABLET (FP) PO SCH (21:33)
[2020-06-09] MEDS: MELATONIN 5 MG TABLETS PO SCH (21:33)
[2020-06-10] MEDS: BACITRACIN 0.9 GM PACKET TP SCH ×2 (06:45→21:29)
[2020-06-10] MEDS ORDERED: BUPRENORPHINE/NALOXONE 4 MG/1 MG FILM PACKET SL SCH (10:00)
[2020-06-10] MEDS: PRENATAL VITAMINS W/ FOLIC ACID TABLET (FP) PO SCH (10:37)
[2020-06-10] MEDS: NICOTINE 7 MG/24 HOURS TOPICAL PATCH TD SCH (10:37)
[2020-06-10] MEDS: BUPRENORPHINE/NALOXONE 2 MG/0.5 MG FILM PACKET SL SCH (11:02)
--- NOTE | 2020-06-10 11:05 | PN ---
[facility] Progress Note (SOAP) Subjective: pt c/o protracted withdrawal sx-hot/cold chills, runny nose, back ache, irritability. Requesting for suboxone adjustment. Objective: 06/10/20 11:37 Vital Signs - 24 hr 06/09/20 06/10/20 19:29 08:04 O2 Sat by Pulse 96 96 Oximetry (%) Assessment: 06/10/20 11:37 Suboxone MAT SONJA Plan: D/W pt will Adjust Suboxone to 6mg/1.5mg sl daily pt agreeable with poc
[2020-06-10] MEDS: NICOTINE POLACRILEX 2 MG GUM BC PRN (13:16)
[2020-06-10] MEDS: hydrOXYzine PAMOATE 50 MG CAPSULE (FP) PO PRN (21:29)
[2020-06-10] MEDS: THIAMINE HCL 100 MG TABLET (FP) PO SCH (21:29)
[2020-06-10] MEDS: traZODone HCL 100 MG TABLET (FP) PO SCH (21:29)
[2020-06-10] MEDS: MELATONIN 5 MG TABLETS PO SCH (21:29)
[2020-06-11] MEDS: BACITRACIN 0.9 GM PACKET TP SCH ×2 (10:13→14:25)
[2020-06-11] MEDS: NICOTINE 7 MG/24 HOURS TOPICAL PATCH TD SCH (10:13)
[2020-06-11] MEDS: PRENATAL VITAMINS W/ FOLIC ACID TABLET (FP) PO SCH (10:13)
[2020-06-11] MEDS: BUPRENORPHINE/NALOXONE 2 MG/0.5 MG FILM PACKET SL SCH (10:13)
[2020-06-11] MEDS: hydrOXYzine PAMOATE 50 MG CAPSULE (FP) PO PRN (10:14)
--- NOTE | 2020-06-11 20:05 | PN ---
[facility] Progress Note Note: Patient requesting to leave early. Patient states will f/u w/ continuing Suboxone @ [facility] on Saturday, where he has been affiliated for the past few years. Alert and oriented and in no apparent distress. Gait steady. Lungs CTA. PERRL Plan: Arranging to have a 4 day supply of Suboxone prescription sent to home pharmacy. Overdose risks and prenvetion discussed. Declined Narcan.
--- NOTE | 2020-06-11 20:54 | DS ---
[facility] Rehab Discharge Summary - [facility] Rehab Discharge Summary Admission Date: 06/05/20 Discharge Date: 06/17/20 - History Present History: Alcohol dependence, Cannabis dependence, Opioid dependence Pertinent Past History: Admitted to rehab from post opioid detox. - Discharge Physical Exam Vital Signs: Vital Signs Temperature 97.7 F 06/11/20 07:34 Pulse Rate 90 06/11/20 07:34 Respiratory Rate 18 06/11/20 07:34 Blood Pressure 113/73 06/11/20 07:34 O2 Sat by Pulse Oximetry (%) 97 06/11/20 14:59 - Treatment Discharge Condition: Discharge condition good, Outpatient referral accepted (o [facility] referred t) Hospital Course: Having ongoin withdrawal symptoms and started on Suboxone. - Medication Discharge Medications: Ambulatory Orders Naloxone HCl [Narcan] 4 mg NS ASDIR PRN #1 spray 06/05/20 traZODone HCL [Desyrel -] 50 mg PO HS 06/06/20 Buprenorphine/Naloxone [Suboxone 2Mg/0.5MG Sl Film -] 3 combo SL DAILY 4 Days #12 packet MDD 3 06/11/20 - Medication-Assisted Treatment (MAT) Medication-Assisted Treatment (MAT): Yes - Discharge Instructions Diet, activity, other medical instructions: Diet: Reg Activity: Ad tiffani Other medical instructions: Encouraged f/u w/ PCP and referral to MAT program. Declined NRT. - Diagnosis (1) Cannabis abuse Status: Acute (2) Nicotine dependence Status: Chronic Qualifiers: Nicotine product type: cigarettes Substance use status: in withdrawal Qualified Code(s): F17.213 - Nicotine dependence, cigarettes, with withdrawal (3) Opioid dependence on agonist therapy Status: Acute - Follow-up Referral Minutes to complete discharge: 15 - AMA Did Patient Leave Against Medical Advice: No
[2020-06-11 22:36] VITALS: BP 119/70; PULSE 107; TEMP 98.2
== END 2020-06-11 21:05 | disposition home or self-care (01) | DRG 773 ==
LOC: YASAS 11:44 → Y5N 11:45
PROVIDERS: ADMIT Allergy & Immunology; ATTEND Allergy & Immunology
PROC: HZ2ZZZZ Detoxification Services for Substance Abuse Treatment (ICD-10-PCS; principal; 2020-06-05)
DX: F11.23 Opioid dependence with withdrawal (principal); F15.20 Other stimulant dependence, uncomplicated; F12.20 Cannabis dependence, uncomplicated; F17.210 Nicotine dependence, cigarettes, uncomplicated; B18.2 Chronic viral hepatitis C; Z56.0 Unemployment, unspecified; Z59.0 Homelessness